=== PATIENT | male | born 1970 | race Caucasian/White ===

== ENCOUNTER 2023-11-03 10:22 | Outpatient (CLI) | payer OTHER, SELFPAY ==
[2023-11-03 16:44] LABS: Basophils # 0.1 K/mm3 (0-0.2); Basophils % 0.9 % (0.1-2.0); Eosinophils # 0.1 K/mm3 (0.0-0.4); Eosinophils % 1.6 % (0.1-12.0); Hemoglobin 15.4 g/dL (14.1-18.0); Lymphocytes # 2.1 K/mm3 (0.7-4.5); Lymphocytes % 31.6 % (10-50); Mean Corpuscular HGB Conc 33.4 g/dL (31.8-35.4); Mean Corpuscular Hemoglobin 29.8 pg (27.0-31.2); Mean Platelet Volume 9.8 fl (7.4-10.4); Monocytes # 0.5 K/mm3 (0.1-1.0); Monocytes % 7.3 % (1.7-9.3); Neutrophils # 3.8 K/mm3 (1.8-7.8); Neutrophils % 58.5 % (37.0-80.0); Platelet Count 254 K/mm3 (142-424); Red Blood Count 5.17 M/mm3 (4.60-6.20); Red Cell Distribution Width 13.7 % (11.5-17.5); White Blood Count 6.6 K/mm3 (4.8-10.8)
[2023-11-03 16:57] LABS: Alanine Aminotransferase 34 U/L (12-78); Albumin Level 4.5 g/dl (3.5-5.0); Albumin/Globulin Ratio 1.6 (1.1-1.8); Alkaline Phosphatase 84 U/L (38-126); Anion Gap 12.4 mEq/L (5-15); Aspartate Amino Transferase 36 U/L (17-59); Bilirubin,Total 0.5 mg/dl (0.2-1.3); Blood Urea Nitrogen 11 mg/dl (9-20); Calcium 9.6 mg/dl (8.4-10.2); Carbon Dioxide 24 mmol/L (22.0-30.0); Chloride 108 mmol/L (98-107); Chol/HDL Ratio 5.1 (1-3.5); Cholesterol 204 mg/dl (140-200); Estimated Glomerular Filt Rate 89 ml/min (>60); GFR (African American) 108 ML/MIN (>60); Globulin 2.9 g/dL (1.3-3.2); Glucose 94 mg/dl (74-100); HDL Cholesterol 40 mg/dl (40-60); Potassium 4.4 mmoL/L (3.5-5.1); Sodium 140 mmol/L (136-145); Total Protein,Serum 7.4 g/dl (6.3-8.2); Triglycerides 151 mg/dl (30-150); VLDL Cholesterol 30 mg/dL (0-40)
[2023-11-03 17:08] LABS: Direct LDL Cholesterol 132.19 mg/dL (100-129)
[2023-11-03 17:27] LABS: Thyroid Stimulating Hormone 1.61 uIU/mL (0.465-4.68)
== END 2023-11-03 23:59 | disposition home or self-care (01) ==
LOC: LAB.DROPOF 11-04 10:22
PROVIDERS: PCP Family Medicine; Visit Provider Family Medicine
DX: I10 Essential (primary) hypertension (principal)
CPT/HCPCS: 80050; 80053; 80061; 84443; 85025

== ENCOUNTER 2024-02-29 05:50 | Outpatient (CLI) | payer OTHER, SELFPAY ==
[2024-02-29 16:24] LABS: Basophils # 0.1 K/mm3 (0-0.2); Basophils % 1.6 % (0.1-2.0); Eosinophils # 0.2 K/mm3 (0.0-0.4); Eosinophils % 2.8 % (0.1-12.0); Hematocrit 46.1 % (42.0-52.0); Hemoglobin 15.7 g/dL (14.1-18.0); Lymphocytes # 2.5 K/mm3 (0.7-4.5); Lymphocytes % 42.7 % (10-50); Mean Corpuscular HGB Conc 34.2 g/dL (31.8-35.4); Mean Corpuscular Hemoglobin 29.7 pg (27.0-31.2); Mean Corpuscular Volume 86.8 fl (80-94); Mean Platelet Volume 9.3 fl (7.4-10.4); Monocytes # 0.5 K/mm3 (0.1-1.0); Monocytes % 8.5 % (1.7-9.3); Neutrophils # 2.6 K/mm3 (1.8-7.8); Neutrophils % 44.4 % (37.0-80.0); Platelet Count 231 K/mm3 (142-424); Red Blood Count 5.31 M/mm3 (4.60-6.20); Red Cell Distribution Width 13.6 % (11.5-17.5); White Blood Count 5.8 K/mm3 (4.8-10.8)
[2024-02-29 16:58] LABS: Alanine Aminotransferase 35 U/L (12-78); Albumin Level 4.4 g/dl (3.5-5.0); Albumin/Globulin Ratio 1.8 (1.1-1.8); Alkaline Phosphatase 81 U/L (38-126); Anion Gap 13.6 mEq/L (5-15); Aspartate Amino Transferase 34 U/L (17-59); Bilirubin,Total 0.5 mg/dl (0.2-1.3); Blood Urea Nitrogen 13 mg/dl (9-20); Calcium 9.5 mg/dl (8.4-10.2); Carbon Dioxide 28 mmol/L (22.0-30.0); Chloride 103 mmol/L (98-107); Chol/HDL Ratio 4.9 (1-3.5); Cholesterol 194 mg/dl (140-200); Estimated Glomerular Filt Rate 79 ml/min (>60); GFR (African American) 95 ML/MIN (>60); Globulin 2.5 g/dL (1.3-3.2); Glucose 59 mg/dl (74-100); HDL Cholesterol 40 mg/dl (40-60); Potassium 4.6 mmoL/L (3.5-5.1); Sodium 140 mmol/L (136-145); Total Protein,Serum 6.9 g/dl (6.3-8.2); Triglycerides 247 mg/dl (30-150); VLDL Cholesterol 49 mg/dL (0-40)
[2024-02-29 17:08] LABS: Direct LDL Cholesterol 134.32 mg/dL (100-129)
[2024-02-29 17:32] LABS: HIV (1&2) Antibody Rapid NONREACTIVE (NONREACTIVE)
[2024-03-01 09:22] LABS: HCV Ab Non Reactive (Non Reactive)
== END 2024-02-29 23:59 | disposition home or self-care (01) ==
LOC: LAB.DROPOF 03-01 07:39
PROVIDERS: PCP Family Medicine; Visit Provider Family Medicine
DX: I10 Essential (primary) hypertension (principal); Z11.59 Encounter for screening for other viral diseases; Z11.4 Encounter for screening for human immunodeficiency virus [HIV]
CPT/HCPCS: 80053; 80061; 85025; 86803; 87389

== ENCOUNTER 2024-04-21 10:33 | Day surgery (SDC) | payer OTHER, SELFPAY ==
[2024-04-14 13:48] VITALS: BMI 31.0
[2024-04-21 10:45] VITALS: BP 143/95; PULSE 79; RESP 16; TEMP 36.3; O2SAT 97
[2024-04-21] MEDS: LACTATED RINGERS 1000ML 1,000 ML 25 ML IV (10:51)
--- NOTE | 2024-04-21 10:54 | EXP.ANES.CKL ---
[facility] Disclaimer: The information contained in this section may have been updated after the patient was seen, as this information can be updated by other users. Medical History Depression GERD (gastroesophageal reflux disease) Psoriatic arthritis Surgical History H/O knee surgery History of cholecystectomy Family History Grandfather Cancer Coronary artery disease Diabetes Heart attack Hypertension Kidney disease Grandmother Cancer Diabetes Father Coronary artery disease Heart attack Hypertension Kidney disease Social History Smoking Status: Current every day smoker alcohol intake: never substance use type: denies use current occupational status: employed Travel in the last 8 weeks: None household members: spouse, children and other housing: house caffeine: Yes Have you lived/traveled outside [place] in past 30 days?: No Contact w/someone who lives/traveled outside [place] past 30 days?: No Exposure to someone with infectious disease in past 14 days?: No Do you have a fever (greater than 100.4 F or 38 C)?: No Have you tested positive for COVID-19: No Exposed to someone with COVID-19 in past 14 days?: No Do you have a sore throat?: No Do you have a cough?: No Do you have any weakness?: No Are you experiencing any nausea/vomitting?: No Do you have any diarrhea?: No Are you experiencing any unusual bleeding?: No Do you have any muscle aches/pain?: No Do you have any abdominal pain?: No Are you experiencing loss of taste or smell?: No [facility] Anesthesia Checklist Patient Identification Patient Identification: Arm Band Structural Data Admitted From: Home Planned Operative Procedure/s: Colonoscopy Consent for Planned Operative Procedure(s) Verified: Yes Verified Documents: Surgical Consent and History and Physical NPO Status Verified Time NPO: 00:00 Additional verifications Anesthesia Reactions: No Airway Assessment Mallampati Score:: Class II C-Spine Mobility Assessed: Yes TMJ Mobility Assessed: Yes Dentition: Dentures-good fit Neurological Assessment Level of Consciousness: Awake, Alert and Appropriate Anesthesia Plan Anesthesia Risk discussed: Yes Anesthesia Plan: Verified ASA Class: II Anesthesia Type: MAC
[2024-04-21 10:59] VITALS: O2SAT 99
--- NOTE | 2024-04-21 11:04 | P.HP_ITS ---
History of Present Illness *Admission Date: 04/21/24 *Reason for visit:: Surveillance-personal history of adenomatous polyps and family history *History of present illness: Mr. Camp is a 53-year-old gentleman who is here for surveillance colonoscopy. He does have a personal history of adenomatous polyps and his last colonoscopy 6 years ago showed 5 polyps. His mother had colon cancer at the age of 61. His paternal grandfather and maternal grandmother had colon cancer as well. The examination is deemed medically necessary for surveillance colonoscopy. The patient has been seen, interviewed and examined prior to the procedure by both myself and the anesthesia provider. [facility] Disclaimer: The information contained in this section may have been updated after the patient was seen, as this information can be updated by other users. Medical History Depression GERD (gastroesophageal reflux disease) Psoriatic arthritis Surgical History H/O knee surgery History of cholecystectomy Family History Grandfather Cancer Coronary artery disease Diabetes Heart attack Hypertension Kidney disease Grandmother Cancer Diabetes Father Coronary artery disease Heart attack Hypertension Kidney disease Social History Smoking Status: Current every day smoker alcohol intake: never substance use type: denies use current occupational status: employed Travel in the last 8 weeks: None household members: spouse, children and other housing: house caffeine: Yes Have you lived/traveled outside US in past 30 days?: No Contact w/someone who lives/traveled outside US past 30 days?: No Exposure to someone with infectious disease in past 14 days?: No Do you have a fever (greater than 100.4 F or 38 C)?: No Have you tested positive for COVID-19: No Exposed to someone with COVID-19 in past 14 days?: No Do you have a sore throat?: No Do you have a cough?: No Do you have any weakness?: No Are you experiencing any nausea/vomitting?: No Do you have any diarrhea?: No Are you experiencing any unusual bleeding?: No Do you have any muscle aches/pain?: No Do you have any abdominal pain?: No Are you experiencing loss of taste or smell?: No Other Medical History Have you received the Pneumonia Vaccine: No Review of Systems Review of Systems Review of systems (narrative): Negative *Cardiovascular Comments: Negative *Gastrointestinal Comments: Negative *Genitourinary Comments: Negative *Musculoskeletal Comments: Negative *Neurologic Comments: Negative Meds Home Medications and Allergies Home Medications ?Medication ?Instructions ?Recorded ?Confirmed ?Type fluticasone propionate 50 1 spray intranasal DAILY 05/19/22 04/21/24 History mcg/actuation nasal spray,suspension (Flonase Allergy Relief) omeprazole 20 mg capsule,delayed 20 mg PO DAILY 05/19/22 04/21/24 History release ustekinumab 90 mg/mL subcutaneous 90 mg SQ .Q12W 05/19/22 04/21/24 History syringe (Stelara) fluticasone propionate 110 1 inh inhalation BID #12 grams 05/15/23 04/21/24 Rx mcg/actuation HFA aerosol inhaler bupropion HCl 300 mg 24 hr tablet, 300 mg PO DAILY #90 tabs 08/09/23 04/21/24 Rx extended release pravastatin 20 mg tablet 40 mg (2 x 20 mg) PO DAILY 30 days 03/01/24 04/21/24 Rx #60 tabs amlodipine 5 mg tablet 5 mg PO DAILY #90 tabs 03/14/24 04/21/24 Rx sodium,potassium,mag sulfates 17.5 See Rx Instructions PO .COMPLEX 04/15/24 04/21/24 Rx gram-3.13 gram-1.6 gram oral soln #354 mL (Suprep Bowel Prep Kit) New Prescriptions to Start Prescriptions: Allergies Allergy/AdvReac Type Severity Reaction Status Date / Time No Known Allergies Allergy Verified 04/21/24 10:42 Exam Data for Last 24 hours Vital signs and Labs for Last 24 Hours: Temp Pulse Resp BP Pulse Ox O2 Del Method O2 Flow Rate 97.3 F L 79 16 143/95 H 97 Nasal Cannula 5 04/21/24 10:45 04/21/24 10:45 04/21/24 10:45 04/21/24 10:45 04/21/24 10:45 04/21/24 10:59 04/21/24 10:59 *Routine HEENT Exam Head: Present normocephalic Eye: Present EOMI and PERRL ENT: Present mucous membranes moist *Routine Neck Exam Neck: Present supple *Routine Respiratory Exam Respiratory: Present CTA bilaterally *Routine Cardiovascular Exam Cardiovascular: Present RRR *Routine Abdominal Exam Abdominal: Present soft and normoactive bowel sounds; Absent tenderness *Routine Rectal Exam Rectal:: deferred *Routine Genitalia Exam Genitalia:: deferred *Routine Extremities Exam Extremities: Absent cyanosis, clubbing or edema *Routine Skin Exam Skin: Present warm; Absent rash *Routine Neurological Exam Neurological: Present alert and oriented X3 Assessment and Plan *Assessment and plan (1) Personal history of adenomatous and serrated colon polyps: Status: Acute Category: Medical Code(s): Z86.0101 - Personal history of adenomatous and serrated colon polyps (2) Family history of colon cancer in mother: Status: Acute Category: Medical Code(s): Z80.0 - Family history of malignant neoplasm of digestive organs Plan A/P: 1. Personal history of adenomatous colon polyps and family history is the preprocedural diagnosis. The patient will be anesthetized/sedated using MAC sedation. The patient has been seen and examined. Cardiac and lung assessment prior to the examination is stable. Proceed with planned surveillance colonoscopy
--- NOTE | 2024-04-21 11:08 | HMH.PROCNOTE ---
[facility] Procedure Note Date: 04/21/24 Time: 11:26 Procedure Note:: Colonoscopy Procedure Report: Colonoscopy with cold snare polypectomy Endoscopist: Tay Contreras II, MD Referring physician: Tristen Mccormick MD Date of Procedure: April 21, 2024 Equipment: Olympus 190 variable stiffness pediatric colonoscope Sedation: MAC sedation Indication: Mr. Camp is a 53-year-old gentleman who is here for surveillance colonoscopy. His last colonoscopy 6 years ago (at [facility]) revealed 5 polyps that were removed. He does state that his mother had colon cancer at the age of 61. His paternal grandfather and maternal grandmother also had colon cancer. He reports no abdominal pain, weight loss, change in his bowel habits or rectal bleeding. Procedure: Prior to the procedure, a history and physical exam was performed, and patient's medications and allergies were reviewed. The risks, benefits and alternatives of the sedation and procedure were discussed with the patient. All questions were answered and informed consent was obtained. The patient was brought to the procedure room. Patient identification and proposed procedure were verified by the physician and the nurse. The patient was placed in a left lateral decubitus position and the scope was passed under direct vision. Throughout the procedure, the patient's blood pressure, pulse, and oxygen saturations were monitored continuously. The colonoscopy was accomplished without difficulty. The patient tolerated the procedure well. Findings: On digital rectal examination there was normal rectal tone. There were no external hemorrhoids. The colonoscope was introduced through the anal canal to the rectum and advanced to the cecum. The ileocecal valve and appendiceal orifice were identified. The scope was advanced a short distance into the ileum which appeared grossly normal. The scope was then withdrawn into the colon. The cecum, ascending and transverse colon and mucosa were grossly normal. There were mildly scattered diverticuli throughout the descending and sigmoid colon (LEFT colon). There was a single hyperplastic appearing polyp (4 mm) in the sigmoid colon removed via cold snare polypectomy. The rectum itself was normal. Upon retroflexion within the rectum there were grade 2 internal hemorrhoids. The preparation was excellent throughout with [place] Preparation Score of 9. The cecal time was 11 minutes. Impression: 1. Diminutive sigmoid polyp (4 mm)?hyperplastic appearing 2. Mild left-sided diverticulosis 3. Grade 2 internal hemorrhoids Plan: I will follow-up the polyp histology and recommend repeat surveillance colonoscopy in 5 years primarily based on his strong family history. I would encourage psyllium bulking fiber supplementation on a maintenance basis.
[2024-04-21 11:28] VITALS: BP 100/68; PULSE 77; RESP 18; TEMP 36.1; O2SAT 94
[2024-04-21 11:38] VITALS: BP 106/62; PULSE 72; RESP 18; O2SAT 95
[2024-04-21 11:48] VITALS: BP 111/64; PULSE 72; RESP 18; O2SAT 95
[2024-04-21 11:58] VITALS: BP 128/82; PULSE 67; RESP 18; O2SAT 95
== END 2024-04-21 12:28 | disposition home or self-care (01) ==
PROVIDERS: PCP Family Medicine; Visit Provider Internal Medicine Gastroenterology
PROC: (CPT 45385; principal; 2024-04-21 12:00)
DX: K63.5 Polyp of colon (principal); K57.30 Diverticulosis of large intestine without perforation or abscess without bleeding; K64.1 Second degree hemorrhoids; Z86.0101 Personal history of adenomatous and serrated colon polyps; Z80.0 Family history of malignant neoplasm of digestive organs
CPT/HCPCS: 45385; J7120

== ENCOUNTER 2024-09-30 15:33 | Outpatient (CLI) | payer OTHER, SELFPAY ==
--- OUTSIDE RECORDS SUMMARY | 2023-10-14 13:35 | XMS_ITS | Continuity of Care Document ---
Author Organization [facility]. If a dditional information is needed, contact Health Information Management at [phone] Address [address] [place] [address] Phone Care Team Providers Care Refrigeration Insulator Name Role Phone Unavailable Unavailable Unavailable Unavailable Unavailable Unavailable Unavailable Unavailable Unavailable Unavailable Unavailable Unavailable Unavailable Unavailable Unavailable Unavailable Unavailable Unavailable Unavailable Unavailable Unavailable Unavailable Unavailable Unavailable Unavailable Unavailable Unavailable Unavailable Unavailable Unavailable Unavailable Unavailable Unavailable Unavailable Unavailable Unavailable Unavailable Unavailable Unavailable Unavailable Unavailable Unavailable Unavailable Unavailable Unavailable Unavailable Unavailable Unavailable Unavailable Unavailable Unavailable Unavailable Unavailable Unavailable Note Valerie Gabriel MD--Ju Timeframe/days/weeks/months In 1-2 weeks Valerie Gabriel MD--Ju [facility] ([facility]ospital[facility] Discharge SummaryREPORT#:[id number] REPORT STATUS: SignedDATE:10/14/23 TIME: 1650PATIENT: ENMA DUBON UNIT #: [id number]#: [id number] [address] 53 SEX: M ATTEND: Luci Altman MDADM/RES AUTHOR: Harvey Padilla MDREP SRV REP SRV TM: 1650* ALL edits or amendments must be made on the electronic/computer document *General InformationDate of admission:Observation Start Date: 10/13/23Date of admission: 10/14/23Discharge date: 10/14/23Discharge diagnosis:1. Enecephalopathy, unpesified type2. Elevated Blood Pressure without diagnosis of HTN3. Psoriatic arthritis4. Major Depression Disorder5. Tobacco dependenceHospital course:53-year-old male with history of psoriatic arthritis, depression who presentedwith acute onset of vertigo upon waking this morning, however patient would thenbecame unresponsive. Apparently was felt that he may have drug overdose andNarcan was administered without any improvement. He was responsive to sternalrub but otherwise minimally responsive and maintaining his airway. He states hehas some recollection of EMS people arriving to work, but does not recall how hecame to be at the hospital. In the emergency department there was concern forcontinued severe encephalopathy. Patient was able to follow some basic commandsbut still appeared to be somnolent. As time passed patient is more alert andconversant, however now complains of lower extremity weakness and numbness. Nota candidate for thrombolytics as he reports that his symptoms were present uponwaking. Etiology of his encephalopathy not immediately clear, possiblymultifactorial in setting of dehydration, heat stroke, thc ingestion. MRI brainunremarkable for acute pathology. EEG was normal. leg weakness, resolved.Patient discharged home on new antihypertensive medications.Consultants: neurologyPt. condition on discharge: improved, stableAllergies:Allergies:No Known Allergies (Coded, 10/13/23)Free Text DxA P NotesFree text DxA P notes:10/13/2023 - AMS1. Altered mental status, R/O Sz vs CVA- CVA work up- Neuro checks Q1 x 12 hrs, then Q4 hrs for 24 hrs.- MRI brain w/o- 2D echo w/ bubble study- EEG pending- NPO until swallow study- PT/OT eval for rehab placement- permissive HTN per protocol- consulted Neuro, D/W Dr. Mcknight, input appreciated2. Psoriatic arthritis- continue home meds, pain control- Tylenol p.r.n., Mobic monitor Cr- home meds reconciled3. GERD- PPI GI Px., omeprazole 20 mg q.d.- home meds reconciled4. Morbid obesity , BMI 41.8- encourage diet, weight loss, exercise- lifestyle modifications- f/u PCP on D/C for wt. management- SCD's DVT/VTE Px.5. Tobacco dependence- encouraged cessation- nicotine patch p.r.n.- follow-up PCP for cessation management on D/C- > 3 mts spent on consultation/cessation6. Anxiety/Depression- hold welbutrin for Sz work up- restart on D/C when cleared by neuroDISPO: DC home.Med RecMed RecDischarge meds:Continue taking these medications:buPROPion HCL (Wellbutrin XL) 300 MG TAB.SR.24H 300 MILLIGRAM ORAL Comments: #30 - SIG Obtained From FirstOmeprazole (Omeprazole) 20 MG CAP.DR 20 MILLIGRAM ORAL WITH BREAKFASTLORATADINE (CLARITIN) 10 MG CAP 10 MILLIGRAM ORAL ONCE DAILYStart taking the following new medications:amLODIPine (NORVASC) 5 MG TAB 5 MILLIGRAM ORAL ONCE DAILY Days = 30 Qty = 30 Refills = 1ObjectiveVS/I OLast Documented: Result Date Time Pulse Ox 98 10/13 153 B/P 136/82 10/13 1531 B/P Mean 100.0 10/13 1531 O2 Delivery Room air 10/13 153 Temp 36.4 10/13 1531 Pulse 74 10/13 1531 Resp 18 10/13 [id number] hour I O ending at 0700: 10/13 0700 10/12 1900 Intake Total 240 200 Output Total 400 Balance 240 -200 Intake, Oral 240 200 Number Voids 2 Output, Urine 400 Patient 97.1 kg Weight Weight Bed scale Measurement MethodResultsFindings/Data:Laboratory Tests: 10/13 0243 Chemistry Sodium (136 - 145 mmol/L) 140 Potassium (3.4 - 5.1 mmol/L) 4.0 Chloride (98 - 107 mmol/L) 110 H Carbon Dioxide (20 - 31 mmol/L) 25 Anion Gap (5 - 15 MMOL/L) 5 BUN (9 - 23 mg/dL) 11 Creatinine (0.70 - 1.30 mg/dL) 1.10 Est GFR (CKD-EPI 2020) (>/= 60) > 60 BUN/Creatinine Ratio (12 - 20 RATIO) 10 L Glucose (74 - 106 mg/dL) 104 Calcium (8.7 - 10.4 mg/dL) 8.7 Calcium Adj for Albumin (8.8 - 10.5 mg/dL) 8.7 L Total Bilirubin (0.3 - 1.2 mg/dL) 0.3 AST (<34 Units/L) 27 ALT (10 - 49 Units/L) 29 Alkaline Phosphatase (46 - 116 Units/L) 87 Total Protein (5.7 - 8.2 g/dL) 6.3 Albumin (3.2 - 4.8 g/dL) 4.0 Globulin (2.2 - 4.0 G/DL) 2.3 Albumin/Globulin Ratio (0.7 - 2.0 RATIO) 1.7 Triglycerides (<150 mg/dL) 292 H Cholesterol (<200 mg/dL) 186 LDL Cholesterol (92 - 130 MG/DL) 92 VLDL Cholesterol (1 - 41 MG/DL) 58 H HDL Cholesterol (40 - 60 mg/dL) 36 L Cholesterol/HDL Ratio (3.9 - 5.2) 5.2 Hematology WBC (4.23 - 9.07 K/MM3) 6.98 RBC (4.63 - 6.08 M/MM3) 5.06 Hgb (13.7 - 17.5 GM/DL) 14.9 Hct (40.1 - 51.0 %PCV) 44.2 MCV (79.0 - 92.2 FL) 87.4 MCH (25.7 - 32.2 PG) 29.4 MCHC (32.3 - 36.5 GM/DL) 33.7 RDW (11.6 - 14.4 %) 13.2 Plt Count (163 - 337 K/MM3) 203 MPV (9.4 - 12.4 FL) 10.8 Immature Gran % (Auto) (0.0 - 0.9 %) 0.7 Neut % (Auto) (34.0 - 67.9 %) 51.6 Lymph % (Auto) (21.8 - 53.1 %) 36.2 [place] % (Auto) (5.3 - 12.2 %) 7.4 Eos % (Auto) (0.8 - 7.0 %) 3.2 Baso % (Auto) (0.2 - 1.2 %) 0.9 Neut # (Auto) (1.78 - 5.38 K/MM3) 3.60 Immature Gran # (Auto) (0.0 - 0.3) 0.05 Absolute Eos (auto) (0.04 - 0.54 K/MM3) 0.22 Absolute Basos (auto) (0.01 - 0.08) 0.06 Nucleated RBC % (0 - 0.2 %) 0.0 Lymphocytes # (1.32 - 3.57 K/MM3) 2.53 Monocytes # (0.30 - 0.82) 0.52 Nucleated RBCs (0 - 0 KMM3) 0.00Radiology data:Recent Impressions:MAGNETIC RESONANCE IMAGING - MRI BRAIN W WO CONT 10/13 1350 Report Impression - Status: SIGNED Entered: 10/14/2023 1500IMPRESSION:No acute intracranial findings are identified.Workstation Name: [id number] By: KARY MCKEE MDResults: labs reviewed, vital signs reviewed, vital signs stable, CT resultsreviewed, MRI results reviewed, x- ray personally reviewed, current med profilerev'dFree Text Obj NotesFree Text Obj Notes:Physical Exam:General appearance: Morbid obese, NAD, pleasant, conversational, mental statusnormal, no respiratory distressHead/Eyes: atraumatic, EOMI, PERRLAENT: moist mucosal membranes, normal dentitionNeck: full range of motion, non-tender, no JVDCardiovascular: normal heart sounds, regular rate rhythm, no murmurRespiratory: aerating well, clear to auscultation, symmetric expansion, nodistressGU/Abdomen: Obese/Rotund, non-tender, normal bowel sounds, softGenitourinary: no CVA tendernessExtremities: moves all, normal range of motion, no edemaMusculoskeletal: normal inspection, painless range of motionNeuro/DEPUTY PROSECUTING ATTORNEY: COA x 4, normal speech, EOMI, PERRL, CN II-XII intact, reflexesdeferred, no motor deficits, no sensory deficits, no cerebellar deficits,strenght 5/5 neuro intactSkin: dry, intactPsychiatry: normal affect, normal judgment/insight, normal moodDischarge InstructionsPCPPCP follow-up:PCP: Undefined ProviderDischarge to: Home/Self CareAdditional Discharge Routines: PCP Follow-UpDiet: Resume Home Diet/FeedsActivity: Resume Normal ActivityNotify PCP of these S/S: Chest Pain, Increased redness, Increased swelling,Increased tenderness/pain, Moderate/large bleeding, Numbness, Pus-like discharge, Red line from wound, Shortness of breath, Temp. 101 or greaterPrescriptions: e-prescribeRx drug database reviewed: yesDischarge management: less than 30 mins, face to face encounterTime spent: Time spent on patient care (minutes): 26 >50% spent on counseling/coordination of care: yesFollow-up AppointmentsPCP follow-up: PCP: Undefined Provider PCP follow up timeframe: In 1-2 weeksTreatments ProceduresImaging:Recent Impressions:COMPUTERIZED TOMOGRAPHY - CTA NECK W WO CONT 10/12 0705 Report Impression - Status: SIGNED Entered: 10/13/2023 0729IMPRESSION:No significant carotid artery stenosis.All CT scans at this facility use dose modulation, iterativereconstruction, and or weight based dosing when appropriate to reduceradiation dose to as low as reasonably achievable.Workstation Name: [id number] By: KARY MCKEE MDCOMPUTERIZED TOMOGRAPHY - CT HEAD/BRAIN W/O CONT 10/12 0705 Report Impression - Status: SIGNED Entered: 10/13/2023 0724IMPRESSION:No acute intracranial findings.All CT scans at this facility use dose modulation, iterativereconstruction, and or weight based dosing when appropriate to reduceradiation dose to as low as reasonably achievable.Workstation Name: [id number] By: KARY MCKEE MDCOMPUTERIZED TOMOGRAPHY - CTA HEAD W WO CONT 10/12 0705 Report Impression - Status: SIGNED Entered: 10/13/2023 0729IMPRESSION:No significant carotid artery stenosis.All CT scans at this facility use dose modulation, iterativereconstruction, and or weight based dosing when appropriate to reduceradiation dose to as low as reasonably achievable.Workstation Name: [id number] By: KAYR MCKEE MDRADIOLOGY - XR CHEST 1V 10/12 0710 Report Impression - Status: SIGNED Entered: 10/13/2023 0818IMPRESSION:Minimal hazy opacity in the left lung base.Nonspecific elevation of the right hemidiaphragm.Workstation Name: [id number] By: KARY MCKEE MDMAGNETIC RESONANCE IMAGING - MRI BRAIN W WO CONT 10/13 1350 Report Impression - Status: SIGNED Entered: 10/14/2023 1500IMPRESSION:No acute intracranial findings are identified.Workstation Name: [id number] By: KARY MCKEE MDQuality: DischargeCurrent MedicationsCurrent medication review:I attest that the foregoing medication list in the medical record is true,accurate, and complete to the best of my knowledge.BMI Screening > 25 or < 18.5BMI status/follow-up: abnl BMI, pt to F/U w/PCPTobacco Use/CounselingTobacco use/counseling: tobacco user, cessation child care counselor <3 minHTN Screening/Follow-upB/P assess/follow-up: normal B/P, no f/u req at 1234RPT #: [id number] OF REPORT Juan Luis Martins MD-14-Oct-2023 [facility] ([facility])Neurology Progress NoteREPORT#:[id number] REPORT STATUS: SignedDATE:10/14/23 TIME: 1512PATIENT: ENMA DUBON UNIT #: [id number]#: [id number] [address] 53 SEX: M ATTEND: Harvey Pdailla MDADM/RES AUTHOR: Fredrick Mcknight MDREP SRV REP SRV TM: 1512* ALL edits or amendments must be made on the electronic/computer document *SubjectiveChief complaint:No acute events overnight. Patient continues to show improvement. States hehas been up walking with no residual leg weakness or numbness to voidspontaneously. MRI completed with no evidence of stroke or other acuteintracranial pathology.HPI:53-year-old male with history of psoriatic arthritis, depression who presentedwith acute onset of vertigo upon waking this morning, however patient would thenbecame unresponsive. Apparently was felt that he may have drug overdose andNarcan was administered without any improvement. He was responsive to sternalrub but otherwise minimally responsive and maintaining his airway. He states hehas some recollection of EMS people arriving to work, but does not recall how hecame to be at the hospital. In the emergency department there was concern forcontinued severe encephalopathy. Patient was able to follow some basic commandsbut still appeared to be somnolent. As time passed patient is more alert andconversant, however now complains of lower extremity weakness and numbness.Not a candidate for thrombolytics as he reports that his symptoms were presentupon waking.Review of SystemsFree Text ROS NotesFree Text ROS Notes:14 point review of systems negative unless otherwise reported in the HPI.ObjectiveGeneralVS:Last Documented: Result Date Time Pulse Ox 98 10/13 1143 B/P 133/85 10/13 1143 B/P Mean 100.9 10/13 1143 O2 Delivery Room air 10/13 1143 Temp 36.6 10/13 1143 Pulse 65 10/13 1143 Resp 18 10/13 1143PATIENT WEIGHT:Weight (lb):Weight (oz):Weight (kg): 97.100MedicationsCurrent Home MedicationsOmeprazole 20 MG PO C BKLORATADINE (CLARITIN) 10 MG PO DAILYbuPROPion HCL (Wellbutrin XL) 300 MG POActive Meds + DC'd Last 24 HrsGadoterate Meglumine (Dotarem) 19 ML ONCALL PRN IV (CKD)Sodium Chloride (sodium chloride 0.9%) 10 ML ONCALL PRN IVLoratadine (Claritin) 10 MG QAM POMeloxicam (MOBIC) 15 MG QAM POPantoprazole Sodium Sesquihydrate (Protonix) 40 MG QAM POLoratadine (Claritin) 10 MG DAILY PO (DC)Nicotine (NICOTINE 21 MG PATCH) 21 MG BEDTIME TRANSDERM (CKD)Acetaminophen (TylenoL) 650 MG Q4H PRN PRN POCalcium Carbonate (Tums) 1,000 MG Q6H PRN PRN POLorazepam (Ativan) 2 MG Q4H PRN PRN IVOndansetron HCl (Zofran) 4 MG Q4H PRN PRN IVSodium Chloride (sodium chloride 0.9%) 0 PRN PRN IVPhysical ExamHead/Eyes: atraumatic, normocephalicENT: moist mucosal membranesNeck: full range of motionCardiovascular: regular rate and rhythmRespiratory: aerating well, no distressAbdomen: soft, no distentionExtremities: moves all, no edemaNeuro/DEPUTY PROSECUTING ATTORNEY: alert, oriented X 4, normal speech, EOMI, PERRL, CN II-XII intact,reflexes equal bilat, normal reflexes, no motor deficits, no sensory deficits,no cerebellar deficitsDiagnosis, Assessment PlanFree Text A P:1. Encephalopathy, resolving- etiology not immediately clear, possibly multifactorial in setting ofdehydration, heat stroke, thc ingestion- MRI brain unremarkable for acute pathology- EEG was normal- afebrile, laboratories are fairly unimpressive. CK 299- check TSH, B12, RPR2. leg weakness, resolvedConsultants: neurologyQuality: Gen Med Crit CareVTE ProphylaxisVTE prophylaxis initiated: yes at 1515RPT #: [id number] OF REPORT Valerie Gabriel MD-26-Ju [facility])Hospitalist Progress NoteREPORT#:[id number] REPORT STATUS: SignedDATE:10/14/23 TIME: 1449PATIENT: ENMA DUBON UNIT #: [id number]#: [id number] [address]: 53 SEX: M ATTEND: Luci Altman MDADM/RES AUTHOR: Harvey Padilla MDREP SRV REP SRV TM: 1449* ALL edits or amendments must be made on the electronic/computer document *SubjectiveChief complaint:AMSHPI:53 y/o male comes to the ER via helicopter when he was noted to be lessresponsive, sitting around [place] where he has been both camping andworking. Patient was reported to last be known well at 5:00 a.m.. There isno additional history available. Patient was given Narcan without anysignificant change. It was noted that patient does respond to deep sternal rub,but otherwise is minimally responsive but maintaining his airway. On ER arrivalhe only responded to deep sternal rub and does not speak. Upon admissionpatient was alert oriented x4. He does not recall any events. Any history ofseizures. No prior history or episodes like this, co-worker at bedside stateshe is essentially back to baseline. He admits use of THC gummies for chronicpsoriatic arthritic pain but denies any changes to dose, and Wellbutrin fordepression/anxiety. He denies any chest pain, shortness breath, nausea,vomiting diarrhea, no recent illness, fevers, chills or any other complaints atthis point. He admits he was out in the heat all day yesterday working buthydrated well.Comments:No new events. Remain stable. No new focal deficits.Review of SystemsAll systems rev neg: except as markedObjectiveGeneralVS/I O:Vital Signs: Date Time Temp Pulse Resp B/P B/P Pulse O2 O2 Flow FiO2 Mean Ox Delivery Rate 10/13 1143 36.6 65 18 133/85 100.9 98 Room air 10/13 0739 36.5 60 18 126/81 95.9 95 Room air 10/13 0404 36.4 55 14 132/80 97.6 97 Room air 10/12 2355 36.9 70 14 127/75 92.3 97 Room air 10/12 2007 36.8 75 15 138/80 99.1 97 10/12 1618 36.8 66 19 162/92 115.4 98 Room air24 hour I O ending at 0700: 10/13 0700 10/12 1900 Intake Total 240 200 Output Total 400 Balance 240 -200 Intake, Oral 240 200 Number Voids 2 Output, Urine 400 Patient 97.1 kg Weight Weight Bed scale Measurement MethodPATIENT WEIGHT:Weight (lb):Weight (oz):Weight (kg): 97.100Medications:Active Meds + DC'd Last 24 HrsGadoterate Meglumine (Dotarem) 19 ML ONCALL PRN IV (CKD)Sodium Chloride (sodium chloride 0.9%) 10 ML ONCALL PRN IVLoratadine (Claritin) 10 MG QAM POMeloxicam (MOBIC) 15 MG QAM POPantoprazole Sodium Sesquihydrate (Protonix) 40 MG QAM POLoratadine (Claritin) 10 MG DAILY PO (DC)Nicotine (NICOTINE 21 MG PATCH) 21 MG BEDTIME TRANSDERM (CKD)Acetaminophen (TylenoL) 650 MG Q4H PRN PRN POCalcium Carbonate (Tums) 1,000 MG Q6H PRN PRN POLorazepam (Ativan) 2 MG Q4H PRN PRN IVOndansetron HCl (Zofran) 4 MG Q4H PRN PRN IVSodium Chloride (sodium chloride 0.9%) 0 PRN PRN IVDietitian nutrition assessmentThe data set between the solid lines has been imported from the dietitian'dyllan. __BMI Calculated: 41.8Nutrition related diagnosis:Nutrition diagnosis details:Nutrition problem:Nutrition etiology:Nutrition signs and symptoms:Nutrition prescription:Dietitian name:Assessment completed: Resul tsFin dings/Data:Laboratory Tests 10/13 0243 Chemistry Sodium (136 - 145 mmol/L) 140 Potassium (3.4 - 5.1 mmol/L) 4.0 Chloride (98 - 107 mmol/L) 110 H Carbon Dioxide (20 - 31 mmol/L) 25 Anion Gap (5 - 15 MMOL/L) 5 BUN (9 - 23 mg/dL) 11 Creatinine (0.70 - 1.30 mg/dL) 1.10 Est GFR (CKD-EPI 2020) (>/= 60) > 60 BUN/Creatinine Ratio (12 - 20 RATIO) 10 L Glucose (74 - 106 mg/dL) 104 Calcium (8.7 - 10.4 mg/dL) 8.7 Calcium Adj for Albumin (8.8 - 10.5 mg/dL) 8.7 L Total Bilirubin (0.3 - 1.2 mg/dL) 0.3 AST (<34 Units/L) 27 ALT (10 - 49 Units/L) 29 Alkaline Phosphatase (46 - 116 Units/L) 87 Total Protein (5.7 - 8.2 g/dL) 6.3 Albumin (3.2 - 4.8 g/dL) 4.0 Globulin (2.2 - 4.0 G/DL) 2.3 Albumin/Globulin Ratio (0.7 - 2.0 RATIO) 1.7 Triglycerides (<150 mg/dL) 292 H Cholesterol (<200 mg/dL) 186 LDL Cholesterol (92 - 130 MG/DL) 92 VLDL Cholesterol (1 - 41 MG/DL) 58 H HDL Cholesterol (40 - 60 mg/dL) 36 L Cholesterol/HDL Ratio (3.9 - 5.2) 5.2Laboratory Tests 10/13 0243 Hematology WBC (4.23 - 9.07 K/MM3) 6.98 RBC (4.63 - 6.08 M/MM3) 5.06 Hgb (13.7 - 17.5 GM/DL) 14.9 Hct (40.1 - 51.0 %PCV) 44.2 MCV (79.0 - 92.2 FL) 87.4 MCH (25.7 - 32.2 PG) 29.4 MCHC (32.3 - 36.5 GM/DL) 33.7 RDW (11.6 - 14.4 %) 13.2 Plt Count (163 - 337 K/MM3) 203 MPV (9.4 - 12.4 FL) 10.8 Immature Gran % (Auto) (0.0 - 0.9 %) 0.7 Neut % (Auto) (34.0 - 67.9 %) 51.6 Lymph % (Auto) (21.8 - 53.1 %) 36.2 [place] % (Auto) (5.3 - 12.2 %) 7.4 Eos % (Auto) (0.8 - 7.0 %) 3.2 Baso % (Auto) (0.2 - 1.2 %) 0.9 Neut # (Auto) (1.78 - 5.38 K/MM3) 3.60 Immature Gran # (Auto) (0.0 - 0.3) 0.05 Absolute Eos (auto) (0.04 - 0.54 K/MM3) 0.22 Absolute Basos (auto) (0.01 - 0.08) 0.06 Nucleated RBC % (0 - 0.2 %) 0.0 Lymphocytes # (1.32 - 3.57 K/MM3) 2.53 Monocytes # (0.30 - 0.82) 0.52 Nucleated RBCs (0 - 0 KMM3) 0.00Results: labs reviewed, vital signs reviewed, vital signs stable, CT resultsreviewed, current med profile rev'dFree Text Obj NotesFree Text Obj Notes:Physical Exam:General appearance: Morbid obese, NAD, pleasant, conversational, mental statusnormal, no respiratory distressHead/Eyes: atraumatic, EOMI, PERRLAENT: moist mucosal membranes, normal dentitionNeck: full range of motion, non-tender, no JVDCardiovascular: normal heart sounds, regular rate rhythm, no murmurRespiratory: aerating well, clear to auscultation, symmetric expansion, nodistressGU/Abdomen: Obese/Rotund, non-tender, normal bowel sounds, softGenitourinary: no CVA tendernessExtremities: moves all, normal range of motion, no edemaMusculoskeletal: normal inspection, painless range of motionNeuro/DEPUTY PROSECUTING ATTORNEY: COA x 4, normal speech, EOMI, PERRL, CN II-XII intact, reflexesdeferred, no motor deficits, no sensory deficits, no cerebellar deficits,strenght 5/5 neuro intactSkin: dry, intactPsychiatry: normal affect, normal judgment/insight, normal moodTreatment ProphylaxisTreatment ProphylaxisLines: peripheralDiagnosis, Assessment PlanConsultants: neurologyCode status: full codePlan discussed with: patient, consultants, nurseFree Text DxA P NotesFree text DxA P notes:10/13/2023 - AMS1. Altered mental status, R/O Sz vs CVA- CVA work up- Neuro checks Q1 x 12 hrs, then Q4 hrs for 24 hrs.- MRI brain w/o- 2D echo w/ bubble study- EEG pending- NPO until swallow study- PT/OT eval for rehab placement- permissive HTN per protocol- consulted Neuro, D/W Dr. Mcknight, input appreciated2. Psoriatic arthritis- continue home meds, pain control- Tylenol p.r.n., Mobic monitor Cr- home meds reconciled3. GERD- PPI GI Px., omeprazole 20 mg q.d.- home meds reconciled4. Morbid obesity , BMI 41.8- encourage diet, weight loss, exercise- lifestyle modifications- f/u PCP on D/C for wt. management- SCD's DVT/VTE Px.5. Tobacco dependence- encouraged cessation- nicotine patch p.r.n.- follow-up PCP for cessation management on D/C- > 3 mts spent on consultation/cessation6. Anxiety/Depression- hold welbutrin for Sz work up- restart on D/C when cleared by neuroDISPO: Continue present management. Continue to follow Brain MRI andEchocardiogram.QualityMedicationsCurrent medication review:I attest that the foregoing medication list in the medical record is true,accurate, and complete to the best of my knowledge.VTE ProphylaxisVTE prophylaxis initiated: yesBMI Screening > 25 or < 18.5BMI status/follow-up: abnl BMI, pt to F/U w/PCPTobacco Use/CounselingTobacco use/counseling: tobacco user, cessation child care counselor <3 minHTN Screening/Follow-upB/P assess/follow-up: normal B/P, no f/u req at 1604RPT #: [id number] OF REPORT Juan Luis Martins MD-25-Sep-2023 [facility])Neurology Consultation NoteREPORT#:[id number] REPORT STATUS: SignedDATE:10/13/23 TIME: 1535PATIENT: ENMA DUBON UNIT #: [id number]#: [id number] [address] 53 SEX: M ATTEND: Luci Altman MDADM/RES AUTHOR: Fredrick Mcknight MDREP SRV REP SRV TM: 1535* ALL edits or amendments must be made on the electronic/computer document *History of Present IllnessHPIHPI:53-year-old male with history of psoriatic arthritis, depression who presentedwith acute onset of vertigo upon waking this morning, however patient would thenbecame unresponsive. Apparently was felt that he may have drug overdose andNarcan was administered without any improvement. He was responsive to sternalrub but otherwise minimally responsive and maintaining his airway. He states hehas some recollection of EMS people arriving to work, but does not recall how hecame to be at the hospital. In the emergency department there was concern forcontinued severe encephalopathy. Patient was able to follow some basic commandsbut still appeared to be somnolent. As time passed patient is more alert andconversant, however now complains of lower extremity weakness and numbness.Not a candidate for thrombolytics as he reports that his symptoms were presentupon waking.History - Adult longitudinalPast medical history:Reports: Arthritis (Psoriatic), Depression/mood disorder, GERD/gastritis.Past surgical history:Reports: Cholecystectomy.Alcohol use: Denies EtOH useDrug use: Marijuana (THC gummies )Smoking status for patients 13 years old or older: Current every day smokerDate last smoked: 10/12/23Packs per day: 1Years smoked: 25Pack years: 25Allergies:Coded Allergies:No Known Allergies (10/13/23)Ambulatory status: IndependentObjectiveGeneralVS:Last Documented: Result Date Time Pulse Ox 98 10/12 1328 B/P 130/87 10/12 1328 B/P Mean 101.2 10/12 1328 O2 Delivery Room air 10/12 1328 Temp 36.7 10/12 1328 Pulse 65 10/12 1328 Resp 18 10/12 1328PATIENT WEIGHT:Weight (lb):Weight (oz):Weight (kg): 97.100MedicationsCurrent Home MedicationsbuPROPion HCL (Wellbutrin XL) 300 MG PO BEDTIMEMELOXICAM (MOBIC) 15 MG PO DAILYOmeprazole 20 MG PO C BKLORATADINE (CLARITIN) 10 MG PO DAILYActive Meds + DC'd Last 24 HrsMeloxicam (MOBIC) 15 MG QAM PO (CKD)Pantoprazole Sodium Sesquihydrate (Protonix) 40 MG QAM POLoratadine (Claritin) 10 MG DAILY PO (CKD)Nicotine (NICOTINE 21 MG PATCH) 21 MG BEDTIME TRANSDERM (CKD)Acetaminophen (TylenoL) 650 MG Q4H PRN PRN POCalcium Carbonate (Tums) 1,000 MG Q6H PRN PRN POLorazepam (Ativan) 2 MG Q4H PRN PRN IVOndansetron HCl (Zofran) 4 MG Q4H PRN PRN IVSodium Chloride (sodium chloride 0.9%) 0 PRN PRN IVSodium Chloride (SODIUM CHLORIDE 0.9%) 1,000 ML X1ED ONE IV (DC)Physical ExamGeneral appearance: alert, awake, oriented, no acute distress, pleasant,conversational, mental status normal, no respiratory distressHead/Eyes: atraumatic, normocephalicENT: moist mucosal membranesNeck: full range of motionCardiovascular: regular rate and rhythmRespiratory: aerating well, no distressAbdomen: soft, no distentionExtremities: moves all, no edemaNeuro/DEPUTY PROSECUTING ATTORNEY: alert, oriented X 4, normal speech, EOMI, PERRL, CN II-XII intact,reflexes equal bilat, normal reflexes, no motor deficits, Patchy sensory losswith no clear dermatomal or peripheral nerve distribution. Sensation intactvibration bilaterally at the patella and great toesDiagnosis, Assessment PlanConsultants: neurologyFree Text DxA P NotesFree text DxA P notes:1. Encephalopathy, resolving- etiology not immediately clear, possibly toxic drum from ingestion of THC,problems multifactorial in setting of dehydration, heat stroke- MRI brain pending- may consider EEG- afebrile, laboratories are fairly unimpressive. CK 299- check TSH, B12, RPR yet2. leg weakness- patient complains legs feel heavy and tingly. There are scattered sensoryfindings on exam that are not convincing for dermatomal or peripheral nervedistribution. Weakness seems to be effort dependent.Quality: Gen Med Crit CareVTE ProphylaxisVTE prophylaxis initiated: yes at 1543RPT #: [id number] OF REPORT Idania BRYSON-- Sep-2023 [facility] ([facility])Hospitalist History PhysicalREPORT#:[id number] REPORT STATUS: SignedDATE:10/13/23 TIME: 1210PATIENT: ENMA DUBON UNIT #: [id number]#: [id number] ROOM/BED: [facility]- AAGE: 53 SEX: M ATTEND: Luci Altman/RES AUTHOR: Miryam Olson SRV [facility] SRV TM: 1210* ALL edits or amendments must be made on the electronic/computer document *MIRYAM NOVAK 10/13/23 1210:History of Present IllnessHPIChief complaint:AMSPCP:PCP: DANIEL, TNHPI:53 y/o male comes to the ER via helicopter when he was noted to be lessresponsive, sitting around a camp ground where he has been both camping andworking. Patient was reported to last be known well at 5:00 a.m.. There isno additional history available. Patient was given Narcan without anysignificant change. It was noted that patient does respond to deep sternal rub,but otherwise is minimally responsive but maintaining his airway. On ER arrivalhe only responded to deep sternal rub and does not speak. Upon admissionpatient was alert oriented x4. He does not recall any events. Any history ofseizures. No prior history or episodes like this, co-worker at bedside stateshe is essentially back to baseline. He admits use of THC gummies for chronicpsoriatic arthritic pain but denies any changes to dose, and Wellbutrin fordepression/anxiety. He denies any chest pain, shortness breath, nausea,vomiting diarrhea, no recent illness, fevers, chills or any other complaints atthis point. He admits he was out in the heat all day yesterday working buthydrated well.HistoryPast medical history:Reports: Arthritis (Psoriatic), Depression/mood disorder, GERD/gastritis.Past surgical history:Reports: Cholecystectomy.Alcohol use: Denies EtOH useDrug use: Marijuana (THC gummies )Smoking status for patients 13 years old or older: Current every day smokerMedication/Allergy-Vaccine HxMedications:Home Medications:Medication Dose/Rte/Freq Days Qty Entered Last Max Daily Dose Reviewed buPROPion HCL 300 MG PO BEDTIME 10/13/23 10/13/23 (Wellbutrin XL) 08 1339Strength: 300 MG TAB.SR.24H MELOXICAM (MOBIC) 15 MG PO DAILY 10/13/23 10/13/23Strength: 15 MG TAB 0813 1339 Omeprazole 20 MG PO C BK 10/13/23 10/13/23Strength: 20 MG CAP. 0814 1339 LORATADINE (CLARITIN) 10 MG PO DAILY 10/13/23 10/13/23Strength: 10 MG CAP 0814 1339Current Hospital Medications:Autonomic Drugs Sig/Rodríguez Start time Last Medication Dose Route Stop Time Status Admin Nicotine 21 MG BEDTIME 10/12 2100 CKD (NICOTINE 21 MG TRANSDERM PATCH)Central Nervous System Agents Sig/Rodríguez Start time Last Medication Dose Route Stop Time Status Admin Acetaminophen 650 MG Q4H PRN PRN 10/12 1215 AC (TylenoL) PO Lorazepam 2 MG Q4H PRN PRN 10/12 1215 AC (Ativan) IV 10/22 1214Electrolytic, Caloric, And Noa Sig/Rodríguez Start time Last Medication Dose Route Stop Time Status Admin Calcium Carbonate 1,000 MG Q6H PRN PRN 10/12 1215 AC (Tums) PO Sodium Chloride 0 PRN PRN 10/12 1215 AC (sodium chloride IV 0.9%) Sodium Chloride 1,000 ML X1ED ONE 10/12 1000 DC 10/12 (SODIUM CHLORIDE IV 10/12 1100 1016 0.9%)Gastrointestinal Drugs Sig/Rodríguez Start time Last Medication Dose Route Stop Time Status Admin Ondansetron HCl 4 MG Q4H PRN PRN 10/12 1215 AC (Zofran) IVAllergies:Coded Allergies:No Known Allergies (10/13/23)Ambulatory status: IndependentReview of SystemsConstitutional:Denies: chills, fever.Respiratory:Denies: HAAS (dyspnea on exertion), SOB.Cardiovascular:Denies: chest pain, edema.Musculoskeletal:arthritis ( psoriatic).Neuro:change in LOC, unable to speak, weakness.Psych:anxiety, change in mental status, depression.All systems rev neg: except as markedObjectiveGeneralVS/I O:Vital Signs: Date Time Temp Pulse Resp B/P B/P Pulse O2 O2 Flow FiO2 Mean Ox Delivery Rate 10/12 1328 36.7 65 18 130/87 101.2 98 Room air 10/12 1230 75 122/71 92 95 10/12 1215 74 121/69 90 97 10/12 1205 96 10/12 1200 66 116/66 87 06/25 1145 71 120/68 90 96 06/25 1130 69 107/65 81 92 06/25 1115 67 111/66 83 93 06/25 1100 63 18 107/63 80 95 06/25 1000 71 18 116/65 84 95 06/25 0950 96 06/ 0945 75 136/77 99 06/25 0940 18 06/ 0930 80 20 117/66 86 94 06/25 0920 96 06/ 0915 80 118/68 88 06/25 0910 18 06/25 0900 71 20 117/67 87 94 06/25 0855 69 17 06/25 0850 94 06/25 0845 71 19 114/66 84 06/25 0830 116/68 87 94 06/25 0815 77 20 114/68 84 06/25 0805 95 06/ 0800 67 102/58 76 06/ 0755 99 06/25 0750 93 06/ 0745 118/63 84 06/25 0740 71 19 06/ 0730 72 20 126/70 91 06/ 0725 77 20 06/25 0721 128/65 91 06/25 0720 94 06/25 0705 36.2 78 14 137/86 103 97 Room airPATIENT WEIGHT:Weight (lb):Weight (oz):Weight (kg): 97.100Medications:Active Meds + DC'd Last 24 HrsNicotine (NICOTINE 21 MG PATCH) 21 MG BEDTIME TRANSDERM (CKD)Acetaminophen (TylenoL) 650 MG Q4H PRN PRN POCalcium Carbonate (Tums) 1,000 MG Q6H PRN PRN POLorazepam (Ativan) 2 MG Q4H PRN PRN IVOndansetron HCl (Zofran) 4 MG Q4H PRN PRN IVSodium Chloride (sodium chloride 0.9%) 0 PRN PRN IVSodium Chloride (SODIUM CHLORIDE 0.9%) 1,000 ML X1ED ONE IV (DC)ResultsFindings/Data:Laboratory Tests 10/12/ 0740 0731 0721 Blood Gas Specimen Type Arterial Arterial Puncture Site Right Radial pH (7.35 - 7.45) 7.40 pCO2 (35 - 45 MMHG) 40 pO2 (80 - 100 MMHG) 68 L Bicarbonate Actual (22 - 26 MEQ/L) 24 O2 Saturation (94 - 98 %) 94 ABG pH (Temp Correct) (7.35 - 7.45) 7.40 7.38 ABG pCO2 (Temp Corrct (35 - 45 mmHg) 40 45 ABG pO2 (Temp Correct (80 - 100 mmHg) 61.0 L < 38.3 CL ABG PO2/FiO2 Ratio (>200 MMHG) 323.8 ABG HCO3 (22 - 26 mmol/L) 24.7 26.4 H ABG O2 Sat (Calculated) (94 - 98 %) 91.0 L ABG Base Excess (-2.0 - 2.0 MEQ/L) -0.3 -0.1 0.8 Carboxyhemoglobin (1.5 - 5 % THGB) 2.9 Methemoglobin (0.0 - 1.5 %) 0.3 Total Hemoglobin (12.0 - 18.0 G/L) 15.6 O2 Delivery Device Room Air FiO2 (21 - 100 %) 21Laboratory Tests 10/12 10/12 10/12 10/12 0940 0940 0707 0659 Chemistry Sodium (136 - 145 mmol/L) 139 Potassium (3.4 - 5.1 mmol/L) 4.0 Chloride (98 - 107 mmol/L) 111 H Carbon Dioxide (20 - 31 mmol/L) 26 Anion Gap (5 - 15 MMOL/L) 2 L BUN (9 - 23 mg/dL) 13 Creatinine (0.70 - 1.30 mg/dL) 1.26 Est GFR (CKD-EPI 2020) (>/= 60) > 60 BUN/Creatinine Ratio (12 - 20 RATIO) 10 L Glucose (74 - 106 mg/dL) 119 H POC Glucose (70 - 110 MG/DL) 136 H Calcium (8.7 - 10.4 mg/dL) 9.6 Calcium Adj for Albumin (8.8 - 10.5 mg/dL) 9.3 Total Bilirubin (0.3 - 1.2 mg/dL) 0.4 AST (<34 Units/L) 35 H ALT (10 - 49 Units/L) 31 Alkaline Phosphatase (46 - 116 Units/L) 93 Ammonia (11.2 - 31.7 umol/L) 13 Creatine Kinase (46 - 171 Units/L) 299 H Troponin I High Sens (0 - 53 ng/L) < 3 Total Protein (5.7 - 8.2 g/dL) 6.8 Albumin (3.2 - 4.8 g/dL) 4.4 Globulin (2.2 - 4.0 G/DL) 2.4 Albumin/Globulin Ratio (0.7 - 2.0 RATIO) 1.8Laboratory Tests 10/12 0707 Coagulation PT (10.0 - 12.8 Seconds) 10.9 INR (0.8 - 1.1) 1.0 APTT (25 - 38 Seconds) < 22 LLaboratory Tests 10/12 07 Hematology WBC (4.23 - 9.07 K/MM3) 7.33 RBC (4.63 - 6.08 M/MM3) 5.12 Hgb (13.7 - 17.5 GM/DL) 15.1 Hct (40.1 - 51.0 %PCV) 44.7 MCV (79.0 - 92.2 FL) 87.3 MCH (25.7 - 32.2 PG) 29.5 MCHC (32.3 - 36.5 GM/DL) 33.8 RDW (11.6 - 14.4 %) 13.1 Plt Count (163 - 337 K/MM3) 197 MPV (9.4 - 12.4 FL) 10.6 Immature Gran % (Auto) (0.0 - 0.9 %) 0.4 Neut % (Auto) (34.0 - 67.9 %) 64.5 Lymph % (Auto) (21.8 - 53.1 %) 25.2 [place] % (Auto) (5.3 - 12.2 %) 7.2 Eos % (Auto) (0.8 - 7.0 %) 1.9 Baso % (Auto) (0.2 - 1.2 %) 0.8 Neut # (Auto) (1.78 - 5.38 K/MM3) 4.72 Immature Gran # (Auto) (0.0 - 0.3) 0.03 Absolute Eos (auto) (0.04 - 0.54 K/MM3) 0.14 Absolute Basos (auto) (0.01 - 0.08) 0.06 Nucleated RBC % (0 - 0.2 %) 0.0 Lymphocytes # (1.32 - 3.57 K/MM3) 1.85 Monocytes # (0.30 - 0.82) 0.53 Nucleated RBCs (0 - 0 KMM3) 0.00Laboratory Tests 10/12 10/12 0710 0707 Toxicology Salicylates (<29.0 mg/dL) <3.0 Urine Opiates Screen (300 ng/mL) NEGATIVE Acetaminophen (10.0 - 20.0 ug/mL) < 2.0 L Ur Barbiturates Screen (200 ng/mL) NEGATIVE Ur Phencyclidine Scrn (25 ng/mL) NEGATIVE Ur Amphetamines Screen (1000 ng/mL) NEGATIVE U Benzodiazepines Scrn (200 ng/mL) NEGATIVE Urine Cocaine Screen (300 ng/mL) NEGATIVE U Cannabinoids Screen (50 ng/mL) POSITIVE H Plasma/Serum Alcohol (0 - 10 mg/dL) < 3Laboratory Tests 10/12 0707 Urines Urine Color (Yellow) Light Yellow Urine Appearance (Clear) Clear Urine pH (5.0 - 8.0 mg/dL) 6.0 Ur Specific [place] (1.003 - 1.030) >1.030 Urine Protein (Negative mg/dL) 10 (Trace) Urine Ketones (Negative mg/dL) Negative Urine Blood (Negative mg/dL) 0.03 (Trace) H Urine Nitrite (Negative) Negative Urine Bilirubin (Negative mg/dL) Negative Urine Urobilinogen (Normal mg/dL) Normal Ur Leukocyte Esterase (Negative MANFRED/uL) Negative Urine RBC (0 - 5 /HPF) 6-9 H Urine WBC (0 - 5 /HPF) 0-1 Ur Epithelial Cells (0 - 2 /HPF) 0-1 Urine Bacteria (None Seen /HPF) None Seen Urine Mucus (3+ /LPF) Trace Urine Glucose (Negative mg/dL) NegativeRadiology data:Recent Impressions:COMPUTERIZED TOMOGRAPHY - CTA NECK W WO CONT 10/12 07 Report Impression - Status: SIGNED Entered: 10/13/2023 0729IMPRESSION:No significant carotid artery stenosis.All CT scans at this facility use dose modulation, iterativereconstruction, and or weight based dosing when appropriate to reduceradiation dose to as low as reasonably achievable.Workstation Name: [id number] By: KARY MCKEE MDCOMPUTERIZED TOMOGRAPHY - CT HEAD/BRAIN W/O CONT 10/12 704 Report Impression - Status: SIGNED Entered: 10/13/2023 0724IMPRESSION:No acute intracranial findings.All CT scans at this facility use dose modulation, iterativereconstruction, and or weight based dosing when appropriate to reduceradiation dose to as low as reasonably achievable.Workstation Name: [id number] By: KARY MCKEE MDCOMPUTERIZED TOMOGRAPHY - CTA HEAD W WO CONT 10/12 0705 Report Impression - Status: SIGNED Entered: 10/13/2023 0729IMPRESSION:No significant carotid artery stenosis.All CT scans at this facility use dose modulation, iterativereconstruction, and or weight based dosing when appropriate to reduceradiation dose to as low as reasonably achievable.Workstation Name: [id number] By: KARY MCKEE MDRADIOLOGY - XR CHEST 1V 10/12 0710 Report Impression - Status: SIGNED Entered: 10/13/2023 0818IMPRESSION:Minimal hazy opacity in the left lung base.Nonspecific elevation of the right hemidiaphragm.Workstation Name: [id number] By: KARY MCKEE MDResults: labs reviewed, vital signs reviewed, vital signs stable, x-raypersonally reviewedFree Text Obj NotesFree Text Obj Notes:Physical Exam:General appearance: Morbid obese, NAD, pleasant, conversational, mental statusnormal, no respiratory distressHead/Eyes: atraumatic, EOMI, PERRLAENT: moist mucosal membranes, normal dentitionNeck: full range of motion, non-tender, no JVDCardiovascular: normal heart sounds, regular rate rhythm, no murmurRespiratory: aerating well, clear to auscultation, symmetric expansion, nodistressGU/Abdomen: Obese/Rotund, non-tender, normal bowel sounds, softGenitourinary: no CVA tendernessExtremities: moves all, normal range of motion, no edemaMusculoskeletal: normal inspection, painless range of motionNeuro/DEPUTY PROSECUTING ATTORNEY: COA x 4, normal speech, EOMI, PERRL, CN II-XII intact, reflexesdeferred, no motor deficits, no sensory deficits, no cerebellar deficits,strenght 5/5 neuro intactSkin: dry, intactPsychiatry: normal affect, normal judgment/insight, normal moodScoresGlasgowBradford Coma Score: Copyright Sir Michelet [place]lyn[place] Copyright Sir Michelet Hanna Eye opening: (4) Spontaneous Verbal response: (5) Oriented Best motor response: (6) Obeys commands GCS Score: 15Treatment ProphylaxisTreatment ProphylaxisLines: peripheralDiagnosis, Assessment PlanProblem List/A P: 1. Altered mental status 2. Psoriatic arthritis 3. Tobacco dependence 4. Morbid obesity with BMI of 40.0-44.9, adultOrders: Procedure Date/time Status MRI BRAIN W WO CONT 10/13 0333 Active COMPLETE METABOLIC PANEL 10/13 0333 Active CBC W/AUTO DIFFERENTIAL 10/13 0333 Active NOTHING BY MOUTH 10/12 L Complete REGULAR DIET 10/12 D Active Resuscitation Status 10/12 1215 Active Order Set Name 10/12 1215 Active Vital Signs +-POM 10/12 1215 Active Telemetry Initial Order 10/12 1215 Active Seizure Precautions 10/12 1215 Active Sequential Compression Device 10/12 1215 Active Saline Lock 10/12 1215 Active RT: Pulse Oximetry + 10/12 1215 Active Notify VS/I O 10/12 1215 Active Notify + 10/12 1215 Active MRSA Screening Protocol 10/12 1215 Active Assess Neurologic Status 10/12 1215 Active Aspiration Precautions 10/12 1215 Active Activity + 10/12 1215 Active EEG Up to 1 Hour 10/12 1215 Active VTE Prophylaxis Status 10/12 1215 Active Level of Care 10/12 1215 Active Admit Request 10/12 1215 Active Advance Diet as Tolerated 10/12 UNK ActiveConsultants: neurologyPlan discussed with: patient, family ( co-worker), collaborating MD, consultants, nurseCode Status/Resusc. DiscussionResuscitation discussion: Discussed with: patientCode status: full codeFree Text DxA P NotesFree Text DxA P Notes:10/13/2023 - AMS1. Altered mental status, R/O Sz vs CVA- CVA work up- Neuro checks Q1 x 12 hrs, then Q4 hrs for 24 hrs.- MRI brain w/o- 2D echo w/ bubble study- EEG pending- NPO until swallow study- PT/OT eval for rehab placement- permissive HTN per protocol- consulted Neuro, D/W Dr. Mcknight, input appreciated2. Psoriatic arthritis- continue home meds, pain control- Tylenol p.r.n., Mobic monitor Cr- home meds reconciled3. GERD- PPI GI Px., omeprazole 20 mg q.d.- home meds reconciled4. Morbid obesity , BMI 41.8- encourage diet, weight loss, exercise- lifestyle modifications- f/u PCP on D/C for wt. management- SCD's DVT/VTE Px.5. Tobacco dependence- encouraged cessation- nicotine patch p.r.n.- follow-up PCP for cessation management on D/C- > 3 mts spent on consultation/cessation6. Anxiety/Depression- hold welbutrin for Sz work up- restart on D/C when cleared by neuroDISPO: OBS, anticipate < 23 hrs overnight stay pending MRIFurther recommendations per Dr. Altman on attestationQuality: Gen Med Crit CareVTE ProphylaxisVTE prophylaxis initiated: yesCurrent MedicationsCurrent medication review:I attest that the foregoing medication list in the medical record is true,accurate, and complete to the best of my knowledge.BMI Screening > 25 or < 18.5Patient's BMI:Current BMI: 41.8BMI status/follow-up: abnl BMI, pt to F/U w/PCPTobacco Use/CounselingTobacco use/counseling: tobacco user, cessation child care counselor <3 minHTN Screening/Follow-upLast documented vitals:Last Documented: Result Date Time Pulse Ox 98 10/12 1328 B/P 130/87 10/12 1328 B/P Mean 101.2 10/12 1328 O2 Delivery Room air 10/12 1328 Temp 36.7 10/12 1328 Pulse 65 10/12 1328 Resp 18 10/12 1328B/P assess/follow-up: normal B/P, no f/u reqBlood pressure ranges/guide:Screening for Hypertension and follow up measure #[id number] pressure parameters Normal B/P SBP </= 119 DBP </= 79 Pre-hypertensive SBP 120-139 DBP 80-89 Hypertensive SBP >/= 140 DBP >/= 90LUCI ALTMAN MD 10/13/23 1471:AttestationsAttestation needed: supervising physicianPhysician AttestationAgree w/findings plan:I have personally seen and evaluated Mr. Enma Dubon. I reviewed thenotes and assessments performed by Miryam Novak PA-C. I independentlyperformed my own history and physical examination. I agree with the assessmentand plan as outlined in her note. I concur with her documentation of .In brief, Mr. Enma Dubon is a 53 year old male who presents foraltered mentation. Upon my evaluation, he is alert and oriented. Unclearetiology at this time. Neurology consulted - recommendations appreciated.Luci Altman M.D. at 1512 at 2252RPT #: [id number] OF REPORT Nasreen Shearer MD-13-Oct-2023 [facility] ([facility])EMERGENCY PROVIDER REPORTREPORT#:[id number] REPORT STATUS: SignedDATE:10/13/23 TIME: 0700PATIENT: ENMA DUBON UNIT #: [id number]#: [id number] ROOM/BED:AGE: 53 SEX: M PCP PHYS: Undefined ProviderSERVICE AUTHOR: Lety Downey MD* ALL edits or amendments must be made on the electronic/computer document *HPI-Stroke/CVAGeneralInitial Greet Date/Time 10/13/23 0700PresentationChief Complaint: Right Side Patient is a 53-year-old male who is [facility] when he was noted to be less responsive, sitting around a campfirewhere he has been both camping and working. Patient was reported to last beknown well at 5:00 a.m.. There is no additional history available. Patient wasgiven Narcan without any significant change. It was noted that patient doesrespond to deep sternal rub, but otherwise is minimally responsive butmaintaining his airway. On my exam patient only responds to deep sternal ruband does not speak.Risk-Stroke/CVARisk Stratification)( Initial NIH Stroke Scale )( Initial NIH Stroke Scale Response Value NIHSS Applicable? Yes 0 Level of Consciousness Movements to pain (2) 2 Ask Month Age Aphasic (2) 2 Blink Eyes/Squeeze Hands Performs both tasks (0) 0 Horizontal EOM NL side/side eye mvmt (0) 0 Visual Yoo No visual loss (0) 0 Facial Palsy Normal symmetry (0) 0 Right Arm Motor Drift (10s) Drift, not touch bed (1) 1 Left Arm Motor Drift (10s) Drift, not touch bed (1) 1 Right Leg Motor Drift (5s) No movement (4) 4 Left Leg Motor Drift (5s) No movement (4) 4 Limb Ataxia FNF/Heel-Byrd Does not understand (0) 0 Sensation (Arms/Legs/Face) Coma/unresponsive (2) 2 Language Aphasia Mute, global aphasia (3) 3 Dysarthria Mute, anarthric (2) 2 Extinction/Inattention Prfound jodi-inattent (2) 2 Total 23Review of SystemsROS StatementsUnable to Obtain ROS Medical conditionPMH-Stroke/CVAStated Complaint STROKEAllergiesCoded Allergies:No Known Allergies (10/13/23)Home MedicationsReported MedicationsbuPROPion HCL (Wellbutrin XL) 300 MG PO BEDTIMEMELOXICAM (MOBIC) 15 MG PO DAILYOmeprazole 20 MG PO C BKLORATADINE (CLARITIN) 10 MG PO DAILYPast Medical History:Reports: Arthritis.Physical ExamVital SignsVital SignsFirst Documented: Result Date Time Pulse Ox 97 10/12 0705 B/P 137/86 10/12 0705 B/P Mean 103 10/12 0705 O2 Delivery Room air 10/12 0705 Temp 36.2 10/12 0705 Pulse 78 10/12 0705 Resp 14 10/12 0705Last Documented: Result Date Time Pulse Ox 95 10/12 1000 B/P 116/65 10/12 1000 B/P Mean 84 10/12 1000 Pulse 71 10/12 1000 Resp 18 10/12 1000 O2 Delivery Room air 10/12 0705 Temp 36.2 10/12 0705Review of Vital Signs ReviewedBasic Physical ExamBasic PE HEAD: Atraumatic/NC, EYES: PERRL, conj clear, ENT: Membranes moist, ABD: Soft/non-tender, EXT: No gross abnormality, SKIN: No rashes, warm/dry, PSYCH:NL thought contentFocused PEGeneral/Const General/Const Awake, Alert, No acute distressMS Neck Neck Full range of motionResp/Chest Respiratory/Chest Breath sounds NL, Breath sounds = bilatCardiovascular Cardiovascular Heart rate NL, Regular rhythm, Heart sounds NLNeurologic Text/Dict NotesNIH 22 at 0700Interpretation DiagnosticsLab Results InterpretationResultsLaboratory Tests10/13/23 0707:[Embedded Image Not Available]Laboratory Tests: 10/12 10/12 10/12 10/12 0940 0940 0740 0731 Blood Gas Specimen Type Arterial Puncture Site Right Radial pH (7.35 - 7.45) 7.40 pCO2 (35 - 45 MMHG) 40 pO2 (80 - 100 MMHG) 68 L Bicarbonate Actual (22 - 26 MEQ/L) 24 O2 Saturation (94 - 98 %) 94 ABG pH (Temp Correct) (7.35 - 7.45) 7.40 ABG pCO2 (Temp Corrct (35 - 45 mmHg) 40 ABG pO2 (Temp Correct (80 - 100 mmHg) 61.0 L ABG PO2/FiO2 Ratio (>200 MMHG) 323.8 ABG HCO3 (22 - 26 mmol/L) 24.7 ABG O2 Sat (Calculated) (94 - 98 %) 91.0 L ABG Base Excess (-2.0 - 2.0 MEQ/L) -0.3 -0.1 Carboxyhemoglobin (1.5 - 5 % THGB) 2.9 Methemoglobin (0.0 - 1.5 %) 0.3 Total Hemoglobin (12.0 - 18.0 G/L) 15.6 O2 Delivery Device Room Air FiO2 (21 - 100 %) 21 Chemistry Ammonia (11.2 - 31.7 umol/L) 13 Creatine Kinase (46 - 171 Units/L) 299 H 10/12 10/12 0721 0710 Blood Gas Specimen Type Arterial ABG pH (Temp Correct) (7.35 - 7.45) 7.38 ABG pCO2 (Temp Corrct (35 - 45 mmHg) 45 ABG pO2 (Temp Correct (80 - 100 mmHg) < 38.3 CL ABG HCO3 (22 - 26 mmol/L) 26.4 H ABG Base Excess (-2.0 - 3.0 mmol/L) 0.8 Toxicology Salicylates (<29.0 mg/dL) <3.0 Acetaminophen (10.0 - 20.0 ug/mL) < 2.0 L Plasma/Serum Alcohol (0 - 10 mg/dL) < 3 10/12 10/12 0707 0659 Chemistry Sodium (136 - 145 mmol/L) 139 Potassium (3.4 - 5.1 mmol/L) 4.0 Chloride (98 - 107 mmol/L) 111 H Carbon Dioxide (20 - 31 mmol/L) 26 Anion Gap (5 - 15 MMOL/L) 2 L BUN (9 - 23 mg/dL) 13 Creatinine (0.70 - 1.30 mg/dL) 1.26 Est GFR (CKD-EPI 2020) (>/= 60) > 60 BUN/Creatinine Ratio (12 - 20 RATIO) 10 L Glucose (74 - 106 mg/dL) 119 H POC Glucose (70 - 110 MG/DL) 136 H Calcium (8.7 - 10.4 mg/dL) 9.6 Calcium Adj for Albumin (8.8 - 10.5 mg/dL) 9.3 Total Bilirubin (0.3 - 1.2 mg/dL) 0.4 AST (<34 Units/L) 35 H ALT (10 - 49 Units/L) 31 Alkaline Phosphatase (46 - 116 Units/L) 93 Troponin I High Sens (0 - 53 ng/L) < 3 Total Protein (5.7 - 8.2 g/dL) 6.8 Albumin (3.2 - 4.8 g/dL) 4.4 Globulin (2.2 - 4.0 G/DL) 2.4 Albumin/Globulin Ratio (0.7 - 2.0 RATIO) 1.8 Coagulation PT (10.0 - 12.8 Seconds) 10.9 INR (0.8 - 1.1) 1.0 APTT (25 - 38 Seconds) < 22 L Hematology WBC (4.23 - 9.07 K/MM3) 7.33 RBC (4.63 - 6.08 M/MM3) 5.12 Hgb (13.7 - 17.5 GM/DL) 15.1 Hct (40.1 - 51.0 %PCV) 44.7 MCV (79.0 - 92.2 FL) 87.3 MCH (25.7 - 32.2 PG) 29.5 MCHC (32.3 - 36.5 GM/DL) 33.8 RDW (11.6 - 14.4 %) 13.1 Plt Count (163 - 337 K/MM3) 197 MPV (9.4 - 12.4 FL) 10.6 Immature Gran % (Auto) (0.0 - 0.9 %) 0.4 Neut % (Auto) (34.0 - 67.9 %) 64.5 Lymph % (Auto) (21.8 - 53.1 %) 25.2 [place] % (Auto) (5.3 - 12.2 %) 7.2 Eos % (Auto) (0.8 - 7.0 %) 1.9 Baso % (Auto) (0.2 - 1.2 %) 0.8 Neut # (Auto) (1.78 - 5.38 K/MM3) 4.72 Immature Gran # (Auto) (0.0 - 0.3) 0.03 Absolute Eos (auto) (0.04 - 0.54 K/MM3) 0.14 Absolute Basos (auto) (0.01 - 0.08) 0.06 Nucleated RBC % (0 - 0.2 %) 0.0 Lymphocytes # (1.32 - 3.57 K/MM3) 1.85 Monocytes # (0.30 - 0.82) 0.53 Nucleated RBCs (0 - 0 KMM3) 0.00 Toxicology Urine Opiates Screen (300 ng/mL) NEGATIVE Ur Barbiturates Screen (200 ng/mL) NEGATIVE Ur Phencyclidine Scrn (25 ng/mL) NEGATIVE Ur Amphetamines Screen (1000 ng/mL) NEGATIVE U Benzodiazepines Scrn (200 ng/mL) NEGATIVE Urine Cocaine Screen (300 ng/mL) NEGATIVE U Cannabinoids Screen (50 ng/mL) POSITIVE H Urines Urine Color (Yellow) Light Yellow Urine Appearance (Clear) Clear Urine pH (5.0 - 8.0 mg/dL) 6.0 Ur Specific [place] (1.003 - 1.030) >1.030 Urine Protein (Negative mg/dL) 10 (Trace) Urine Ketones (Negative mg/dL) Negative Urine Blood (Negative mg/dL) 0.03 (Trace) H Urine Nitrite (Negative) Negative Urine Bilirubin (Negative mg/dL) Negative Urine Urobilinogen (Normal mg/dL) Normal Ur Leukocyte Esterase (Negative MANFRED/uL) Negative Urine RBC (0 - 5 /HPF) 6-9 H Urine WBC (0 - 5 /HPF) 0-1 Ur Epithelial Cells (0 - 2 /HPF) 0-1 Urine Bacteria (None Seen /HPF) None Seen Urine Mucus (3+ /LPF) Trace Urine Glucose (Negative mg/dL) NegativeRecent Impressions:COMPUTERIZED TOMOGRAPHY - CTA NECK W WO CONT 10/12 0705 Report Impression - Status: SIGNED Entered: 10/13/2023 0729IMPRESSION:No significant carotid artery stenosis.All CT scans at this facility use dose modulation, iterativereconstruction, and or weight based dosing when appropriate to reduceradiation dose to as low as reasonably achievable.Workstation Name: [id number] By: KARY MCKEE MDCOMPUTERIZED TOMOGRAPHY - CT HEAD/BRAIN W/O CONT 10/12 0705 Report Impression - Status: SIGNED Entered: 10/13/2023 0724IMPRESSION:No acute intracranial findings.All CT scans at this facility use dose modulation, iterativereconstruction, and or weight based dosing when appropriate to reduceradiation dose to as low as reasonably achievable.Workstation Name: [id number] By: KARY MCKEE MDCOMPUTERIZED TOMOGRAPHY - CTA HEAD W WO CONT 10/12 0705 Report Impression - Status: SIGNED Entered: 10/13/2023 0729IMPRESSION:No significant carotid artery stenosis.All CT scans at this facility use dose modulation, iterativereconstruction, and or weight based dosing when appropriate to reduceradiation dose to as low as reasonably achievable.Workstation Name: [id number] By: KARY MCKEE MDRADIOLOGY - XR CHEST 1V 10/12 0710 Report Impression - Status: SIGNED Entered: 10/13/2023 0818IMPRESSION:Minimal hazy opacity in the left lung base.Nonspecific elevation of the right hemidiaphragm.Workstation Name: [id number] By: KARY MCKEE MD Lab Imaging StatementLaboratory radiographic studies reviewed and considered in the medicaldecision-making.MDM-Stroke/CVAFree Text MDM NotesFree Text [facility] NotesPatient is a 53-year-old male with history of arthritis who presents to theemergency department as a stroke alert after he was noted to have an acutechange in mental status this morning.Differential diagnosis includes but is not limited to: CVA, substance use,metabolic encephalopathy.Patient's called to the scene reports that 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 She reports she spoke to him lastnight he was in his usual state of health. He does have arthritis but no otherknown medical problems. He does not use any substances routinely but did have acannabis gummy last night.All ordered tests were independently reviewed and interpreted by myself.Notably showing: Normal carboxyhemoglobin.Neurology consulted, Dr. Mcknight, patient's exam does not sound consistent withLVO.He has evaluated the patient in the emergency department. Patient is nowimproved, awake and alert, does complain heaviness to his legs, but has aninconsistent sensory exam in does have reflexes in his lower extremities. [place] check a voiding trial as patient was initially catheterization for urinespecimens responsive on arrival.Patient is able to void without difficulty.Patient has since co-worker present with him now who was staying with him. Theyare staying in the area in a camper doing tree cutting work. They reportedlyworked a normal day yesterday EKG, 8 a good dinner. The patient woke up about 5:00 a.m. to work today and sat on the edge of his bed and said he did not feelright, felt a little dizzy. He did get up and had a small amount of MountainDew, but continued to not feel well and tetanus seated position, and then stopsspeaking, at that point they call 911. Patient reports he has never had anepisode like this in the past. He reported to Neurology that he has had gummiespreviously.Patient to be admitted to Dr. Altman after consultation with BRAYDON Villarreal.Stroke Thrombolytic TherapyAdministered IV Thrombolytic? No, not indicatedED CourseMedication(s) OrderedMedication(s) Ordered:Electrolytic, Caloric, And Noa Sig/Rodríguez Start time Last Medication Dose Route Stop Time Status Admin Sodium Chloride 1,000 ML X1ED ONE 10/12 1000 DC 10/12 IV 10/12 1100 1016MDM-Independent InterpretationMy ECG Interpretation7:23 a.m., sinus rhythm at 76 beats per minute, no ectopy, no ST elevation ordepression noted.Patient Discharge DepartureVital Signs/ConditionVital SignsFirst Documented: Result Date Time Pulse Ox 97 10/12 0705 B/P 137/86 10/12 0705 B/P Mean 103 10/12 0705 O2 Delivery Room air 10/12 0705 Temp 36.2 10/12 0705 Pulse 78 10/12 0705 Resp 14 10/12 0705Last Documented: Result Date Time Pulse Ox 95 10/12 1000 B/P 116/65 10/12 1000 B/P Mean 84 10/12 1000 Pulse 71 10/12 1000 Resp 18 10/12 1000 O2 Delivery Room air 10/12 0705 Temp 36.2 10/12 0705All vital signs available at the time of this entry have been reviewed.Condition StableClinical ImpressionClinical ImpressionPrimary Impression: Altered mental statusDisposition DecisionHospitalize Hosp Physician Name Luci Altman MD )( Accepts Hospitalization Yes )( Accepted Time 7 )( Accepted Date 10/13/23 Call Information will see patientDischarge/Care PlanCounseled Regarding Diagnosis, Lab results, Imaging studies, Need for admissionReferralsPCP Referral: Undefined Provider Admit NoteI have spoken with the patient and/or caregivers. I have explained the patient'scondition, diagnoses and treatment plan based on the information available to meat this time. I have answered the patient's and/or caregiver's questions andaddressed any concerns. The patient and/or caregivers have as good anunderstanding of the patient's diagnosis, condition and treatment plan as can beexpected at this point. The patient has been stabilized within the capability ofthe emergency department. The patient will be transported for further care andmanagement or will be moved to an observation or inpatient service. I havecommunicated with the staff or medical practitioner taking over this patient'scare.Free Text Depart NotesFree Text Depart NotesNote: Portions of the medical record have been created with [email or web address] voicerecognition software. Occasional wrong word or eejva-p-jvcw substitutions mayhave occurred due to the Internet limitations of voice recognition software. Thetext is reviewed by myself, the physician, prior to signing, but occasionalerrors may still occur and should be interpreted within the context of aPhysician encounter. at 1110RPT #: [id number] OF REPORT Problems Psoriatic arthritis Onset:13-Oct-2023 Idania BRYSON Tobacco dependence syndrome Onset:13-Oct-2023 Idania BRYSON Morbid obesity Onset:13-Oct-2023 Idania BRYSON Altered mental status Onset:13-Oct-2023 Nasreen Shearer MD Mental Status Cognitive function finding 13-Oct-2023 Allergies and Adverse Reactions No Known Allergies(Allergy) Onset: 13-Oct-2023 Medications gadoterate meglumine;19 MILLILITER ONCALL Quantity:1 Idania BRYSON Start:14-Aje-1432Llb:17-Oct-2023 Status:Discontinued Comments:[id number] Administration Instructions:0.2 mL/kg (Max dose = 30 mL)*sterile tech to administer*HIGH PRIORITY 1 ML Sodium Chloride 9 MG/ML Prefilled Syringe;10 MILLILITER ONCALL Quantity:1 Idania BRYSON Start:95-Wpr-5095Rpx:17-Oct-2023 Status:Discontinued Comments:[id number] Administration Instructions:*histology tech to administer*HIGH PRIORITY meloxicam 15 MG Oral Tablet [Mobic];15 MILLIGRAM QAM Quantity:2 Idania BRYSON Start:14-Oct-2023 Status:Discontinued Comments:[id number] Administration Instructions:GIVE WITH FOOD pantoprazole 40 MG Delayed Release Oral Tablet [Protonix];40 MILLIGRAM QAM Quantity:1 Idania BRYSON Start:14-Oct-2023 Status:Discontinued Comments:[id number] Administration Instructions:AUTO SUB PER PT FOR: PRILOSEC 20 MG loratadine 10 MG Oral Tablet;10 MILLIGRAM QAM Quantity:1 Anupama Huang MD Start:14-Oct-2023 Status:Discontinued Comments:[id number] loratadine 10 MG Oral Tablet;10 MILLIGRAM DAILY Quantity:1 Idania BRYSON Start:14-Oct-2023 Status:Discontinued Comments:[id number] amLODIPine 5 MG Oral Tablet;5 MILLIGRAM PO DAILY Start:14-Oct-2023 Comments:5 MG PO DAILY 24 HR nicotine 0.875 MG/HR Transdermal System [Nicoderm C-Q];21 MILLIGRAM BEDTIME Quantity:1 Idania Bronson V BRAYDON Start:13-Oct-2023 Status:Discontinued Comments:[id number] Administration Instructions:Please ensure old patch is removed before applying new PATCH REMOVAL REMINDER_PATREMOVE;1 EACH BEDTIME Quantity:1 Idania Bronson V BRAYDON Start:13-Oct-2023 Status:Discontinued Comments:[id number] Administration Instructions:REMOVE NICOTINE PATCH DIRECTED ondansetron 2 MG/ML Injectable Solution [Zofran];4 MILLIGRAM Q4H PRN Quantity:1 Idania Bronson V BRAYDON Start:13-Oct-2023 Status:Discontinued Comments:[id number] acetaminophen 325 MG Oral Tablet [Tactinal];650 MILLIGRAM Q4H PRN Quantity:2 Idania Bronson V BRAYDON Start:13-Oct-2023 Status:Discontinued Comments:[id number] LORazepam 2 MG/ML Injectable Solution;2 MILLIGRAM Q4H PRN Quantity:1 Idania Bronson V BRAYDON Start:54-Vgx-4261Qfn:23-Oct-2023 Status:Discontinued Comments:[id number] calcium carbonate 500 MG Chewable Tablet;1000 MILLIGRAM Q6H PRN Quantity:2 Idania Bronson V BRAYDON Start:13-Oct-2023 Status:Discontinued Comments:[id number] Administration Instructions:GIVE WITH FOOD 1 ML Sodium Chloride 9 MG/ML Prefilled Syringe;[id number] r Administration Instructions:FILL IN DOSE WITH THEAPPROPRIATE AMOUNT TO FLUSH:ADULT: FLUSH WITH 10 ml AFTER MEDS AND LABS.MIDLINE: FLUSH WITH 20 ml.PEDIATRIAC: FLUSH WITH 3 ml. Quantity:0 Idania Bronson V BRAYDON Start:13-Oct-2023 Status:Discontinued Comments:[id number] Administration Instructions:FILL IN DOSE WITH THEAPPROPRIATE AMOUNT TO FLUSH:ADULT: FLUSH WITH 10 ml AFTER MEDS AND LABS.MIDLINE: FLUSH WITH 20 ml.PEDIATRIAC: FLUSH WITH 3 ml. PT REFRIGERATOR MED_PTFRIDGE;1 EACH PRN Quantity:1 Idania BRYSON Start:13-Oct-2023 Status:Discontinued Comments:[id number] Administration Instructions:ENTRY ALLOWS ACCESS TO PATIENT MEDICATIONS IN THE FRIDGE- sodium chloride 9 MG/ML Injectable Solution;[id number] Nasreen Shearer MD Start:63-Mdm-1984Ufv:2023 Comments:[id number] 24 HR buPROPion hydrochloride 300 MG Extended Release Oral Tablet;300 MG PO Start:13-Oct-2023 Comments:300 MG PO meloxicam 15 MG Oral Tablet;15 MILLIGRAM PO DAILY Start:13-Oct-2023 Status:Discontinued Comments:15 MG PO DAILY loratadine 10 MG Oral Capsule [Claritin];10 MILLIGRAM PO DAILY Start:13-Oct-2023 Comments:10 MG PO DAILY omeprazole 20 MG Delayed Release Oral Capsule;20 MILLIGRAM PO C BK Start:13-Oct-2023 Comments:20 MG PO C BK Procedures Monitoring of Central Nervou s Electrical Activity, External Approach Date:14-Oct-2023 MRI BRAIN W&WO CONTResult:[facility] Name: ENMA DUBON [address] [facility] Phys: [place] [address] : 1970 Age: 53 Sex: M Acct: [id number] Loc: F.307W A PHONE #: [phone] Exam Date: 10/14/2023 Status: ADM IN FAX #: [phone] Radiology No: Unit No: [id number] EXAMS: CPT CODE: [id number] MRI BRAIN W WO CONT [id number] EXAM DESCRIPTION: - MRI BRAIN W WO CONT HISTORY: ?. Seizures and stroke. No other history provided. COMPARISON: CT performed the previous day TECHNIQUE: Sagittal T1-weighted images were performed along with axial T1, T2, FLAIR, diffusion, and susceptibility images. ADC maps were created and reviewed. Coronal FLAIR images were performed. Following the intravenous administration of an unspecified amount of Dotarem, sagittal axial and coronal T1-weighted images were performed. FINDINGS: The brain parenchyma is unremarkable in appearance. There is no restricted diffusion to suggest acute ischemia. There is no abnormal susceptibility to suggest hemorrhage. No discrete mass or abnormal enhancement is identified. There is no extra-axial fluid collection identified. The ventricles and basal cisterns are midline without shift or obstruction. The major intracranial vessels demonstrate normal flow voids. The globes and orbits are unremarkable. The paranasal sinuses and mastoid air cells are clear. IMPRESSION: No acute intracranial findings are identified. Workstation Name: [id number] at [id number] Reported and signed by: LILIAM MCKEE MD CC: Miryam BRYSON Tech:LUZ SWANSON RT(MR)(R) Tech 2: Transcribed Date/Time: 10/14/2023 (0195)Prepared By: NEDA Somers Print D/T: S: 10/14/2023 (1979) BATCH NO: N/A PAGE 1 Signed Report Date:14-Oct-2023 Status:Completed XR CHEST 1VResult:[facility] Name: ENMA DUBON [address] [place] [address] Phys: [place] [address] : 1970 Age: 53 Sex: M Acct: [id number] Loc: F.ED PHONE #: [phone] Exam Date: 10/13/2023 Status: [facility] FAX #: [phone] Radiology No: Unit No: [id number] EXAMS: CPT CODE: [id number] XR CHEST 1V 69598 EXAM DESCRIPTION: - XR CHEST 1V HISTORY: Stroke. No other history provided. COMPARISON: Study performed the previous day. TECHNIQUE: AP chest. FINDINGS: The cardiomediastinal silhouette is midline and normal in contour. The right hemidiaphragm is mildly elevated. The left is mildly obscured. Osseous structures are unremarkable.. IMPRESSION: Minimal hazy opacity in the left lung base. Nonspecific elevation of the right hemidiaphragm. Workstation Name: [id number] at 0814 Reported and signed by: LILIAM MCKEE MD CC: Tech:YANA PETERSEN RT(R)(hydrator 2: Transcribed Date/Time: 10/13/2023 (0811)Prepared By: NEDA Orig Print D/T: S: 10/13/2023 (0818) BATCH NO: N/A PAGE 1 Signed Report Date:13-Oct-2023 Status:Completed CTA NECK W&WO CONTResult:[facility] Name: ENMA DUBON [facility] Phys: [place] [address] : 1970 Age: 53 Sex: M Acct: [id number] Loc: F.ED PHONE #: [phone] Exam Date: 10/13/2023 Status: REG ER FAX #: [phone] Radiology No: Unit No: [id number] EXAMS: CPT CODE: [id number] CTA NECK W WO CONT [id number] EXAM DESCRIPTION: - CTA NECK W WO CONT; - CTA HEAD W WO CONT HISTORY: STROKEP - Stroke Protocol Suspected hyperacute stroke. COMPARISON: None available. TECHNIQUE: Computed tomography of the head was performed without contrast according to standard protocol. Computed tomographic angiography was obtained from the level of the aortic arch to the vertex following the uneventful administration of 100mL of isovue 370 intravenous contrast according to hyperacute stroke protocol. Multiplanar reconstructions including maximum intesnity projection (MIP) reconstructions were performed on a separate workstation and interpreted. Contrast information: 100 mL Isovue 370 FINDINGS: HEAD CT FINDINGS: No visible acute hemorrhage or infarct. ANGIOGRAPHIC FINDINGS: The visualized aortic arch appears normal with normal configuration of the great vessels. There is no significant stenosis of the origins of the great vessels. There is no geographic area of vascular paucity in the brain. Left anterior circulation: L CCA: no occlusion or significant stenosis L carotid bifurcation: no occlusion or significant stenosis L ICA proximal: no occlusion or significant stenosis L ICA distal: no occlusion or significant stenosis L ICA terminus: no occlusion or significant stenosis L M1: no occlusion or significant stenosis L M2 branches: no occlusion or significant stenosis L A2: no occlusion or significant stenosis PAGE 1 Signed Report (CONTINUED) [facility] Name: ENMA DUBON [employer] Phys: [place] [address] : 1970 Age: 53 Sex: M Acct: [id number] Loc: F.ED PHONE #: [phone] Exam Date: 10/13/2023 Status: REG ER FAX #: [phone] Radiology No: Unit No: [id number] EXAMS: CPT CODE: [id number] CTA NECK W WO CONT [id number] <Continued> Right anterior circulation: R CCA: no occlusion or significant stenosis R carotid bifurcation: no occlusion or significant stenosis R ICA proximal: no occlusion or significant stenosis R ICA distal: no occlusion or significant stenosis R ICA terminus: no occlusion or significant stenosis R M1: no occlusion or significant stenosis R M2 branches: no occlusion or significant stenosis R A2: no occlusion or significant stenosis Posterior circulation: L Vertebral Artery: no occlusion or significant stenosis R Vertebral Artery: no occlusion or significant stenosis Basilar Artery: no occlusion or significant stenosis L LEAD DATABASE ADMINISTRATOR: no occlusion or significant stenosis R LEAD DATABASE ADMINISTRATOR: no occlusion or significant stenosis No cerebral aneurysm is seen. There is no evidence for an arteriovenous malformation. There is no suspicious cervical lymphadenopathy. There is multilevel cervical spondylosis. The pulmonary apices are clear. Very poor dentition is noted. This is out of proportion to age. IMPRESSION: No significant carotid artery stenosis. All CT scans at this facility use dose modulation, iterative reconstruction, and or weight based dosing when appropriate to reduce radiation dose to as low as reasonably achievable. Workstation Name: [id number] at 0704 Reported and signed by: LILIAM MCKEE MD PAGE 2 Signed Report (CONTINUED) [facility] Name: LINGENMA [address] [place] [address] Phys: José [place] [address] : 1970 Age: 53 Sex: M Acct: [id number] Loc: F.ED PHONE #: [phone] Exam Date: 10/13/2023 Status: REG ER FAX #: [phone] Radiology No: Unit No: [id number] EXAMS: CPT CODE: [id number] CTA NECK W WO CONT [id number] <Continued>CC: Tech:LEENA SEN RT(R) Tech 2: Transcribed Date/Time: 10/13/2023 (0722)Prepared By: NEDA Somers Print D/T: S: 10/13/2023 (0729) BATCH NO: N/A PAGE 3 Signed Report Date:13-Oct-2023 Status:Completed CTA HEAD W&WO CONTResult:[facility] Name: ENMA DUBON myAchy [facility] Phys: [place] [address] : 1970 Age: 53 Sex: M Acct: [id number] Loc: F.ED PHONE #: [phone] Exam Date: 10/13/2023 Status: REG ER FAX #: [phone] Radiology No: Unit No: [id number] EXAMS: CPT CODE: [id number] CTA HEAD W WO CONT [id number] EXAM DESCRIPTION: - CTA NECK W WO CONT; - CTA HEAD W WO CONT HISTORY: STROKEP - Stroke Protocol Suspected hyperacute stroke. COMPARISON: None available. TECHNIQUE: Computed tomography of the head was performed without contrast according to standard protocol. Computed tomographic angiography was obtained from the level of the aortic arch to the vertex following the uneventful administration of 100mL of isovue 370 intravenous contrast according to hyperacute stroke protocol. Multiplanar reconstructions including maximum intesnity projection (MIP) reconstructions were performed on a separate workstation and interpreted. Contrast information: 100 mL Isovue 370 FINDINGS: HEAD CT FINDINGS: No visible acute hemorrhage or infarct. ANGIOGRAPHIC FINDINGS: The visualized aortic arch appears normal with normal configuration of the great vessels. There is no significant stenosis of the origins of the great vessels. There is no geographic area of vascular paucity in the brain. Left anterior circulation: L CCA: no occlusion or significant stenosis L carotid bifurcation: no occlusion or significant stenosis L ICA proximal: no occlusion or significant stenosis L ICA distal: no occlusion or significant stenosis L ICA terminus: no occlusion or significant stenosis L M1: no occlusion or significant stenosis L M2 branches: no occlusion or significant stenosis L A2: no occlusion or significant stenosis PAGE 1 Signed Report (CONTINUED) [facility] Name: ENMA DUBON [address] [employer] Phys: [place] [address] : 1970 Age: 53 Sex: M Acct: [id number] Loc: F.ED PHONE #: [phone] Exam Date: 10/13/2023 Status: REG ER FAX #: [phone] Radiology No: Unit No: [id number] EXAMS: CPT CODE: [id number] CTA HEAD W WO CONT [id number] <Continued> Right anterior circulation: R CCA: no occlusion or significant stenosis R carotid bifurcation: no occlusion or significant stenosis R ICA proximal: no occlusion or significant stenosis R ICA distal: no occlusion or significant stenosis R ICA terminus: no occlusion or significant stenosis R M1: no occlusion or significant stenosis R M2 branches: no occlusion or significant stenosis R A2: no occlusion or significant stenosis Posterior circulation: L Vertebral Artery: no occlusion or significant stenosis R Vertebral Artery: no occlusion or significant stenosis Basilar Artery: no occlusion or significant stenosis L LEAD DATABASE ADMINISTRATOR: no occlusion or significant stenosis R LEAD DATABASE ADMINISTRATOR: no occlusion or significant stenosis No cerebral aneurysm is seen. There is no evidence for an arteriovenous malformation. There is no suspicious cervical lymphadenopathy. There is multilevel cervical spondylosis. The pulmonary apices are clear. Very poor dentition is noted. This is out of proportion to age. IMPRESSION: No significant carotid artery stenosis. All CT scans at this facility use dose modulation, iterative reconstruction, and or weight based dosing when appropriate to reduce radiation dose to as low as reasonably achievable. Workstation Name: [id number] at [id number] Reported and signed by: LILIAM MCKEE MD PAGE 2 Signed Report (CONTINUED) [facility] Name: ENMA DUBON [address] [place] [address] Phys: [place] [address] : 1970 Age: 53 Sex: M Acct: [id number] Loc: F.ED PHONE #: [phone] Exam Date: 10/13/2023 Status: REG ER FAX #: [phone] Radiology No: Unit No: [id number] EXAMS: CPT CODE: [id number] CTA HEAD W WO CONT [id number] <Continued>CC: Tech:LEENA SEN RT(R) Tech 2: Transcribed Date/Time: 10/13/2023 (0722)Prepared By: NEDA Orig Print D/T: S: 10/13/2023 (0729) BATCH NO: N/A PAGE 3 Signed Report Date:13-Oct-2023 Status:Completed CT HEAD/BRAIN W/O CONTResult:[facility] Name: ENMA DUBON [address] [place], [place] [address] Phys: [place] [address] : 1970 Age: 53 Sex: M Acct: [id number] Loc: F.ED PHONE #: [phone] Exam Date: 10/13/2023 Status: REG ER FAX #: [phone] Radiology No: Unit No: [id number] EXAMS: CPT CODE: [id number] CT HEAD/BRAIN W/O CONT [id number] EXAM DESCRIPTION: - CT HEAD/BRAIN W/O CONT HISTORY: STROKEP - Stroke Protocol. Stroke protocol. No other history provided. COMPARISON: None. TECHNIQUE: CT scan of the brain performed without intravenous contrast. FINDINGS: The brain parenchyma is unremarkable in appearance. There is no CT evidence of acute ischemia; however, MRI is more sensitive and specific. There is no evidence of hemorrhage, mass effect, shift of midline, or suspicious extra-axial fluid collection. The ventricles and basal cisterns are midline without shift or obstruction. The visualized paranasal sinuses and mastoid air cells are clear. The globes and orbits demonstrate no acute abnormality. The calvarium and skull base are intact. IMPRESSION: No acute intracranial findings. All CT scans at this facility use dose modulation, iterative reconstruction, and or weight based dosing when appropriate to reduce radiation dose to as low as reasonably achievable. Workstation Name: [id number] at 0720 Reported and signed by: LILIAM MCKEE MD CC: Tech:LEENA MARQUIS(R) Tech 2: Transcribed Date/Time: 10/13/2023 (718)Prepared By: NEDA Somers Print D/T: S: 10/13/2023 (0724) BATCH NO: N/A PAGE 1 Signed Report Date:13-Oct-2023 Status:Completed Social History Smoking Status Smokes tobacco daily Recorded: 13-Oct-2023 Results MRSA Surveillance Screen Ordered On:14-Oct-2023 Comments:Source: NOSE 15-Oct-2023 16:22 MRSA Surveillance ScreenSpecialResults:NEGMRSA Chromagar Screen Negative CBC W/AUTO DIFFERENTIAL Ordered On:14-Oct-2023 04:17 BASOPHIL #0.06(Normal) Range:0 .01-0.08 BASOPHIL %0.9%(Normal) Range:0.2 %-1.2% EOSINOPHIL #0.2210*3/uL(Normal) Range:0.0410*3/uL-0.5410*3/uL EOSINOPHIL %3.2%(Normal) Range:0 .8%-7% XTLZHQHQEY72.2{%PCV}(Normal) Ran ge:40.1{%PCV}-51{%PCV} BKTWELGJBZ31.9g/dL(Normal) Range :13.7g/dL-17.5g/dL IMMATURE GRANULOCYTE #0.05(Normal) Range:0-0.3 IMMATURE GRANULOCYTE %0.7%(Normal) Range:0%-0.9% IMMATURE RETIC FRACTION9.4%(Normal) Range:2.3%-13.4% LYMPHOCYTE #2.5310*3/uL(Normal) Range:1.3210*3/uL-3.5710*3/uL LYMPHOCYTE %36.2%(Normal) Range: 21.8%-53.1% MEAN CELL HGB29.4pg(Normal) Rang e:25.7pg-32.2pg MEAN CELL HGB OEIJSRZBPPTEM32.7g/dL(Normal) Range:32.3g/dL-36.5g/dL MEAN CELL BPJNXT44.4fL(Normal) Range:79fL-92.2fL MONOCYTE #0.52(Normal) Range:0.3 -0.82 MONOCYTE %7.4%(Normal) Range:5.3 %-12.2% MEAN PLATELET EYRFGT26.8fL(Normal) Range:9.4fL-12.4fL NEUTROPHIL #3.6010*3/uL(Normal) Range:1.7810*3/uL-5.3810*3/uL NEUTROPHIL %51.6%(Normal) Range: 34%-67.9% NUCLEATED RED BLOOD CELL0.00{KMM3}(Normal) Range:0{KMM3}-0{KMM3} NUCLEATED RED BLOOD CELL %0.0%(Normal) Range:0%-0.2% PLATELET WPUND48101*3/uL(Normal) Range:97968*3/uL-40894*3/uL RED BLOOD CELL5.06{M/MM3}(Normal) Range:4.63{M/MM3}-6.08{M/MM3} RED CELL DISTRIBUTIO N WIDTH13.2%(Normal) Range:11.6%-14.4% RETICULOCYTE JWNEQNALQZ92.8pg(Normal) Range:28.2pg-35.7pg WBC COUNT BLD6.9810*3/uL(Normal) Range:4.2310*3/uL-9.0710*3/uL COMP METABOLIC PANEL Ordered On:14-Oct-2023 05:07 ALBUMIN/GLOBULIN RATIO1.7{ratio}(Normal) Range:0.7{ratio}-2{ratio} ALBUMIN SERUM4.0g/dL(Normal) Ran ge:3.2g/dL-4.8g/dL ALKALINE GNLTYKNOBAU12M/L(Normal) Range:46U/L-116U/L ALT29U/L(Normal) Range:10U/L-49U /L AST27U/L Range:0-34U/L BILIRUBIN TOTAL0.3mg/dL(Normal) Range:0.3mg/dL-1.2mg/dL Comments:THE PERFORMANCE OF THIS ASSAY HAS NOT BEENESTABLISHED/TESTED FOR /PEDIATRIC POPULATION. BUN/CREATININE RATIO10{ratio}(Low) Range:12{ratio}-20{ratio} UJN80oj/dL(Normal) Range:9mg/dL- 23mg/dL CALCIUM TOTAL8.7mg/dL(Normal) Ra nge:8.7mg/dL-10.4mg/dL CORRECTED CALCIUM8.7mg/dL(Low) Range:8.8mg/dL-10.5mg/dL Comments:Calcium corrected for Albumin. TYNAYWGY822lpmg/L(High) Range:98 mmol/L-107mmol/L CARBON BBXZHWF57frhu/L(Normal) Range:20mmol/L-31mmol/L CREATININE BLD1.10mg/dL(Normal) Range:0.7mg/dL-1.3mg/dL ANION RVJ3nchs/L(Normal) Range:5 mmol/L-15mmol/L eGFR> 60 Range:>/= 60 Comments:The eGFR is calculated using the 2020 CKD-EPI Cr equation,which includes serum Cr, age, and sex but does not include arace coefficient. The National Kidney Foundation recommendsthis formula for calculation eGFR in adults. GFR will notcalculate if sex is unknown or patient age is <18 years.Ref range: >/=60 mL/min/1.73 m2 GLOBULIN2.3g/dL(Normal) Range:2. 2g/dL-4g/dL GLUCOSE BLOOD KYXSV495ti/dL(Normal) Range:74mg/dL-106mg/dL POTASSIUM BLD4.0mmol/L(Normal) Range:3.4mmol/L-5.1mmol/L NLEBKF452jiwv/L(Normal) Range:13 6mmol/L-145mmol/L TOTAL PROTEIN BLD6.3g/dL(Normal) Range:5.7g/dL-8.2g/dL LIPID PANEL Ordered On:14-Oct-2023 05:07 CHOLESTEROL/HDL RATIO5.2(Normal) Range:3.9-5.2 AJVOCAEKBEW050wd/dL Range:0-200m g/dL HDL HNAYDTAXVQI42ou/dL(Low) Rang e:40mg/dL-60mg/dL Comments:Low High-Density Lipoprotein (HDL) cholesterol correlateswith increased risk for coronary heart disease (CHD). LDL RSZVLRPEAEY17oa/dL(Normal) Range:92mg/dL-130mg/dL RQZDDUPMCYAAO544ub/dL(High) Rang e:0-150mg/dL VLDL TGLPRIONEPD06sh/dL(High) Ra nge:1mg/dL-41mg/dL AMMONIA Ordered On:13-Oct-2023 10:34 YNTCMAL19jsac/L(Normal) Range: 11.2umol/L-31.7umol/L CREATINE KINASE Ordered On:13-Oct-2023 10:44 CREATINE JXHICJ912B/L(High) Ra nge:46U/L-171U/L ARTERIAL BLOOD GAS/CO-OX Ordered On:13-Oct-2023 07:50 ABG BASE EXCESS-0.3meq/L(Normal) Range:-2meq/L-2meq/L CO-OX CARBOXYHEMOGLOBIN2.9{%_THGB}( Normal) Range:1.5{%_THGB}-5{%_THGB} Comments:DESCRIPTION:HbCOSmok er Normal range 1.5- 5%Smoker Panic range >10Non-Smoker Normal range <1.5Non-Smoker Panic range >5 ABG XFV845%(Normal) Range:21%-10 0% ABG XBTKFKNTUAS17cbz/L(Normal) Range:22meq/L-26meq/L CO-OX METHEMOGLOBIN0.3%(Normal) Range:0%-1.5% CO-OX O2 KYTVPNUHPW43%(Normal) Range:94%-98% ABG SNZ350fe[Hg](Normal) Range:3 5mm[Hg]-45mm[Hg] BLOOD PO2/FiO2 Ibqig986.8mm[Hg] Range:200mm[Hg]-0 ABG BLOOD GAS PH7.40(Normal) Ran ge:7.35-7.45 ABG GAS TZ873yf[Hg](Low) Range:8 0mm[Hg]-100mm[Hg] ABG SITERight Radial CO-OX TOTAL VKTFUVUIKY61.6g/L(Normal) Range:12g/L-18g/L Arterial Blood Gas Ordered On:13-Oct-2023 07:35 BG Delivery SystemRoom Air BG Sample TypeArterial Base Excess Arterial-0.1mmol/L(Normal) Range:-2mmol/L-3mmol/L HCO3 Vcdhbmnt20.7mmol/L(Normal) Range:22mmol/L-26mmol/L pCO2 Fnszccuk30rf[Hg](Normal) Ra nge:35mm[Hg]-45mm[Hg] pH Arterial7.40(Normal) Range:7. 35-7.45 pO2 Amvtcqsu64.0mm[Hg](Low) Rang e:80mm[Hg]-100mm[Hg] O2 Saturation Zrfvsxza96.0%(Low) Range:94%-98% Arterial Blood Gas Ordered On:13-Oct-2023 07:27 BG Sample TypeArterial Base Excess Arterial0.8mmol/L(Normal) Range:-2mmol/L-3mmol/L HCO3 Awkmmgvg19.4mmol/L(High) Ra nge:22mmol/L-26mmol/L pCO2 Lnesyvcu69ay[Hg](Normal) Ra nge:35mm[Hg]-45mm[Hg] pH Arterial7.38(Normal) Range:7. 35-7.45 pO2 Arterial< 38.3mm[Hg](Critical low) Range:80mm[Hg]-100mm[Hg] ACETAMINOPHEN Ordered On:13-Oct-2023 07:48 ACETAMINOPHEN< 2.0ug/mL(Low) R theresa:10ug/mL-20ug/mL SALICYLATE Ordered On:13-Oct-2023 07:48 SALICYLATE<3.0mg/dL Range:0-29 mg/dL ALCOHOL BLOOD Ordered On:13-Oct-2023 07:48 ALCOHOL BLOOD< 3mg/dL(Normal) Range:0mg/dL-10mg/dL Comments:FOR MEDICAL/DIAGNOSTIC USE ONLY.Divide mg/dl by 1000 to convert to g% CBC W/AUTO DIFFERENTIAL Ordered On:13-Oct-2023 07:39 BASOPHIL #0.06(Normal) Range:0 .01-0.08 BASOPHIL %0.8%(Normal) Range:0.2 %-1.2% EOSINOPHIL #0.1410*3/uL(Normal) Range:0.0410*3/uL-0.5410*3/uL EOSINOPHIL %1.9%(Normal) Range:0 .8%-7% DGGBTFZUQW60.7{%PCV}(Normal) Ran ge:40.1{%PCV}-51{%PCV} DAGYEVLAMT35.1g/dL(Normal) Range :13.7g/dL-17.5g/dL IMMATURE GRANULOCYTE #0.03(Normal) Range:0-0.3 IMMATURE GRANULOCYTE %0.4%(Normal) Range:0%-0.9% IMMATURE RETIC FRACTION8.7%(Normal) Range:2.3%-13.4% LYMPHOCYTE #1.8510*3/uL(Normal) Range:1.3210*3/uL-3.5710*3/uL LYMPHOCYTE %25.2%(Normal) Range: 21.8%-53.1% MEAN CELL HGB29.5pg(Normal) Rang e:25.7pg-32.2pg MEAN CELL HGB BECBDFOMOVMNB62.8g/dL(Normal) Range:32.3g/dL-36.5g/dL MEAN CELL BQXXGZ29.3fL(Normal) Range:79fL-92.2fL MONOCYTE #0.53(Normal) Range:0.3 -0.82 MONOCYTE %7.2%(Normal) Range:5.3 %-12.2% MEAN PLATELET IKNLYA01.6fL(Normal) Range:9.4fL-12.4fL NEUTROPHIL #4.7210*3/uL(Normal) Range:1.7810*3/uL-5.3810*3/uL NEUTROPHIL %64.5%(Normal) Range: 34%-67.9% NUCLEATED RED BLOOD CELL0.00{KMM3}(Normal) Range:0{KMM3}-0{KMM3} NUCLEATED RED BLOOD CELL %0.0%(Normal) Range:0%-0.2% PLATELET INSJR48053*3/uL(Normal) Range:82630*3/uL-38966*3/uL RED BLOOD CELL5.12{M/MM3}(Normal) Range:4.63{M/MM3}-6.08{M/MM3} RED CELL DISTRIBUTIO N WIDTH13.1%(Normal) Range:11.6%-14.4% RETICULOCYTE WLUSMURVCB53.9pg(Normal) Range:28.2pg-35.7pg WBC COUNT BLD7.3310*3/uL(Normal) Range:4.2310*3/uL-9.0710*3/uL COMP METABOLIC PANEL Ordered On:13-Oct-2023 07:50 ALBUMIN/GLOBULIN RATIO1.8{ratio}(Normal) Range:0.7{ratio}-2{ratio} ALBUMIN SERUM4.4g/dL(Normal) Ran ge:3.2g/dL-4.8g/dL ALKALINE RXEGLWJWYBZ50B/L(Normal) Range:46U/L-116U/L ALT31U/L(Normal) Range:10U/L-49U /L AST35U/L(High) Range:0-34U/L BILIRUBIN TOTAL0.4mg/dL(Normal) Range:0.3mg/dL-1.2mg/dL Comments:THE PERFORMANCE OF THIS ASSAY HAS NOT BEENESTABLISHED/TESTED FOR /PEDIATRIC POPULATION. BUN/CREATININE RATIO10{ratio}(Low) Range:12{ratio}-20{ratio} BYS70vm/dL(Normal) Range:9mg/dL- 23mg/dL CALCIUM TOTAL9.6mg/dL(Normal) Ra nge:8.7mg/dL-10.4mg/dL RSFXBEBW806bcck/L(High) Range:98 mmol/L-107mmol/L CARBON RVYOOYU34altz/L(Normal) Range:20mmol/L-31mmol/L CREATININE BLD1.26mg/dL(Normal) Range:0.7mg/dL-1.3mg/dL ANION ELG0bqjr/L(Low) Range:5mmo l/L-15mmol/L eGFR> 60 Range:>/= 60 Comments:The eGFR is calculated using the 2020 CKD-EPI Cr equation,which includes serum Cr, age, and sex but does not include arace coefficient. The National Kidney Foundation recommendsthis formula for calculation eGFR in adults. GFR will notcalculate if sex is unknown or patient age is <18 years.Ref range: >/=60 mL/min/1.73 m2 GLOBULIN2.4g/dL(Normal) Range:2. 2g/dL-4g/dL GLUCOSE BLOOD GPBJJ732ek/dL(High) Range:74mg/dL-106mg/dL POTASSIUM BLD4.0mmol/L(Normal) Range:3.4mmol/L-5.1mmol/L WGZGUJ974qxgl/L(Normal) Range:13 6mmol/L-145mmol/L TOTAL PROTEIN BLD6.8g/dL(Normal) Range:5.7g/dL-8.2g/dL CORRECTED CALCIUM9.3mg/dL(Normal) Range:8.8mg/dL-10.5mg/dL Comments:Calcium corrected for Albumin. TROPI HIGH SENSITIVITY Ordered On:13-Oct-2023 07:50 TROPI HIGH SENSITIVI TY< 3ng/L(Normal) Range:0ng/L-53ng/L URINALYSIS W/ REFLEX CULTURE Ordered On:13-Oct-2023 Comments:Indication for culture: Dysuria/Frequency 13-Oct-2023 08:37 UA APPEARANCEClear Range:Clear UA BILIRUBIN DIPSTICKNegativemg/dL Range:Negative mg/dL UA BLOOD DIPSTICK0.0 3 (Trace)mg/dL(Abnormal) Range:Negative mg/dL UA COLORLight Yellow Range:Yello w UA GLUCOSE DIPSTICKNegativemg/dL Range:Negative mg/dL UA KETONE DIPSTICKNegativemg/dL Range:Negative mg/dL UA LEUKOCYTE ESTERAS E DIPSTICKNegative{MANFRED/uL} Range:Negative MANFRED/uL UA NITRITE DIPSTICKNegative Rang e:Negative UA PH DIPSTICK6.0mg/dL Range:5mg /dL-8mg/dL UA PROTEIN DIPSTICK1 0 (Trace)mg/dL Range:Negative mg/dL SPECIFIC GRAVITY UR>1.030 Range: 1.003-1.03 UA UROBILINOGEN DIPSTICKNormalmg/dL Range:Normal mg/dL UA MICROSCOPIC Ordered On:13-Oct-2023 Comments: Indication for culture: Dysuria/Frequency 13-Oct-2023 08:37 UA BACTERIANone Seen/[HPF] Ran ge:None Seen /HPF UA EPITHELIAL CELLS0-1/[HPF] Ran ge:0/[HPF]-2/[HPF] UA RBC6-9/[HPF](Abnormal) Range: 0/[HPF]-5/[HPF] UA WBC0-1/[HPF] Range:0/[HPF]-5/ [HPF] UA MUCUSTrace/[LPF] Range:3+ /LP F PROTHROMBIN TIME Ordered On:13-Oct-2023 09:13 INTERNATIONAL NORMAL RATIO1.0(Normal) Range:0.8-1.1 Comments:New methodology, please review new reference ranges.Use INR for clinical decision making --Recommended Therapeutic Range:INDICATION TARGETED INR RANGEOn-X Valve (Aortic position) 1.5-2.0Prevention and treatment of VTE 2.0-3.0Atrial Fibrillation 2.0-3.0Acute myocardial infarction 2.0-3.0Valvular heart disease 2.0-3.0Prosthetic tissue heart valves 2.5-3.5Recurrent Thromboembolism 2.5-3.5Targeted INR range of 2.0-3.0 is appropriate for patientswho have a mechanical bileaflet in the aortic position,normal cardiac chamber size, and no other risk factors forstroke.Co-administration of argatroban and warfarin produces acombined effect on INR. Consult pharmacist or physician todetermine if warfarin dose should be held when INR iselevated and patient is receiving argatroban. PROTHROMBIN TIME XXQJGPT97.9s(Normal) Range:10s-12.8s PTT Ordered On:13-Oct-2023 09:13 PTT< 22s(Low) Range:25s-38s Comments:Therapeutic Heparin range is 58-92 seconds. URINE DRUG SCREEN QUAL Ordered On:13-Oct-2023 10:00 AMPHETAMINES QUAL URNEGATIVE R theresa:1000 ng/mL BARBITURATES QUAL URNEGATIVE Ran ge:200 ng/mL BENZODIAZEPINE QUAL URNEGATIVE Range:200 ng/mL COCAINE QUAL URNEGATIVE Range:30 0 ng/mL OPIATES QUAL URNEGATIVE Range:30 0 ng/mL PHENCYCLIDINE QUAL URNEGATIVE Ra nge:25 ng/mL Comments:FOR MEDICAL/DIAGNOSTIC USE ONLY POSITIVE RESULTS UNCONFIRMED: CONFIRMATION BY REQUEST REFERENCE INDICATES THE CUT-OFF FOR POSITIVE TEST RESULTS CANNABINOIDS QUAL URPOSITIVE(Abnormal) Range:50 ng/mL GLUCOSE BY MONITORING DEVICE Ordered On:13-Oct-2023 Comments:CAPILLARY 13-Oct-2023 07:03 GLUCOSE BY MONITORIN G HSSGKT263nu/dL(High) Range:70mg/dL-110mg/dL Vital Signs 14-Oct-2023 15:31 TEMP WWSWMZH84.4c Comments:36.4 Pulse74 Comments:74 Respiratory Rate18 Comments:18 O2 SAT98% Comments:98 BP Hsodreix566hs[Hg] Comments:13 6 BP Uirahfxqi53em[Hg] Comments:82 14-Oct-2023 11:43 TEMP SSAONUI39.6c Comments:36.6 Pulse65 Comments:65 Respiratory Rate18 Comments:18 O2 SAT98% Comments:98 BP Aajbmvni252kt[Hg] Comments:13 3 BP Muzcwxcgj47fm[Hg] Comments:85 14-Oct-2023 07:39 TEMP VAZQZGS32.5c Comments:36.5 Pulse60 Comments:60 Respiratory Rate18 Comments:18 O2 SAT95% Comments:95 BP Yvcpjjab369gh[Hg] Comments:12 6 BP Fgkxaplwv83zp[Hg] Comments:81 14-Oct-2023 04:04 TEMP XQQUDLY98.4c Comments:36.4 Pulse55 Comments:55 Respiratory Rate14 Comments:14 O2 SAT97% Comments:97 BP Clmwvavt972jo[Hg] Comments:13 2 BP Unqtkwfud54uc[Hg] Comments:80 13-Oct-2023 23:55 TEMP UUMRMAW07.9c Comments:36.9 Pulse70 Comments:70 Respiratory Rate14 Comments:14 O2 SAT97% Comments:97 BP Yfnrnvef242bz[Hg] Comments:12 7 BP Bfkcbxsdh32hw[Hg] Comments:75 13-Oct-2023 20:07 TEMP VTYGHLZ26.8c Comments:36.8 Pulse75 Comments:75 Respiratory Rate15 Comments:15 O2 SAT97% Comments:97 BP Xfuhxvgs311do[Hg] Comments:13 8 BP Bmawxvzqt03cx[Hg] Comments:80 13-Oct-2023 16:18 TEMP BHRGFSY04.8c Comments:36.8 Pulse66 Comments:66 Respiratory Rate19 Comments:19 O2 SAT98% Comments:98 BP Hpaocnlq730gd[Hg] Comments:16 2 BP Mnlcqtuqw57px[Hg] Comments:92 13-Oct-2023 13:28 TEMP UPWODVC32.7c Comments:36.7 Pulse65 Comments:65 Respiratory Rate18 Comments:18 O2 SAT98% Comments:98 BP Ubkpciak170bp[Hg] Comments:13 0 BP Uegztouoh72ih[Hg] Comments:87 13-Oct-2023 12:30 Pulse75 Comments:75 O2 SAT95% Comments:95 BP Phguratm398dq[Hg] Comments:12 2 BP Ttuugrqbs80wu[Hg] Comments:71 13-Oct-2023 12:15 Pulse74 Comments:74 O2 SAT97% Comments:97 BP Mggdqzqb415mp[Hg] Comments:12 1 BP Goapxehxi21wh[Hg] Comments:69 13-Oct-2023 12:05 O2 SAT96% Comments:96 13-Oct-2023 12:00 Pulse66 Comments:66 BP Fqgrpjxh601we[Hg] Comments:11 6 BP Jlifydsti60uo[Hg] Comments:66 13-Oct-2023 11:45 Pulse71 Comments:71 O2 SAT96% Comments:96 BP Qaxmvgph883vs[Hg] Comments:12 0 BP Ewengrwvo81ho[Hg] Comments:68 13-Oct-2023 11:30 Pulse69 Comments:69 O2 SAT92% Comments:92 BP Bfwbgxqc624kl[Hg] Comments:10 7 BP Soilwktot59re[Hg] Comments:65 13-Oct-2023 11:15 Pulse67 Comments:67 O2 SAT93% Comments:93 BP Jvyyjequ343vz[Hg] Comments:11 1 BP Uovrskpwv19ak[Hg] Comments:66 13-Oct-2023 11:00 Pulse63 Comments:63 Respiratory Rate18 Comments:18 O2 SAT95% Comments:95 BP Kictypxp994mp[Hg] Comments:10 7 BP Nxqbrmxwr99ym[Hg] Comments:63 13-Oct-2023 10:00 Pulse71 Comments:71 Respiratory Rate18 Comments:18 O2 SAT95% Comments:95 BP Dvlclubz735kn[Hg] Comments:11 6 BP Zivgpnefp91mo[Hg] Comments:65 13-Oct-2023 09:50 O2 SAT96% Comments:96 13-Oct-2023 09:45 Pulse75 Comments:75 BP Hneqjtfa422jn[Hg] Comments:13 6 BP Euamtoxol54jm[Hg] Comments:77 13-Oct-2023 09:40 Respiratory Rate18 Comments:18 13-Oct-2023 09:30 Pulse80 Comments:80 Respiratory Rate20 Comments:20 O2 SAT94% Comments:94 BP Ehouwyzk107fr[Hg] Comments:11 7 BP Uewtgtzbg26rx[Hg] Comments:66 13-Oct-2023 09:20 O2 SAT96% Comments:96 13-Oct-2023 09:15 Pulse80 Comments:80 BP Htybwpex805ea[Hg] Comments:11 8 BP Ilsberojn22kx[Hg] Comments:68 13-Oct-2023 09:10 Respiratory Rate18 Comments:18 13-Oct-2023 09:00 Pulse71 Comments:71 Respiratory Rate20 Comments:20 O2 SAT94% Comments:94 BP Rgpjicqv323no[Hg] Comments:11 7 BP Aqohnsgof34mt[Hg] Comments:67 13-Oct-2023 08:55 Pulse69 Comments:69 Respiratory Rate17 Comments:17 13-Oct-2023 08:50 O2 SAT94% Comments:94 13-Oct-2023 08:45 Pulse71 Comments:71 Respiratory Rate19 Comments:19 BP Fftilebw817ru[Hg] Comments:11 4 BP Wjsvkwsrq61hg[Hg] Comments:66 13-Oct-2023 08:30 O2 SAT94% Comments:94 BP Fcddrrbe815yl[Hg] Comments:11 6 BP Ozflwelxh46xg[Hg] Comments:68 13-Oct-2023 08:15 Pulse77 Comments:77 Respiratory Rate20 Comments:20 BP Xgxbblrb034it[Hg] Comments:11 4 BP Rpmeuqruf14jq[Hg] Comments:68 13-Oct-2023 08:05 O2 SAT95% Comments:95 13-Oct-2023 08:00 Pulse67 Comments:67 BP Rrvvxfnr884rv[Hg] Comments:10 2 BP Xtxkfeeye61zu[Hg] Comments:58 13-Oct-2023 07:55 O2 SAT99% Comments:99 13-Oct-2023 07:50 O2 SAT93% Comments:93 13-Oct-2023 07:45 BP Drjkrjuq909uf[Hg] Comments:11 8 BP Cbwuiamao49ut[Hg] Comments:63 13-Oct-2023 07:40 Pulse71 Comments:71 Respiratory Rate19 Comments:19 13-Oct-2023 07:30 Pulse72 Comments:72 Respiratory Rate20 Comments:20 BP Xyhfpjpa868sm[Hg] Comments:12 6 BP Dxjfwcvfo56km[Hg] Comments:70 13-Oct-2023 07:25 Pulse77 Comments:77 Respiratory Rate20 Comments:20 13-Oct-2023 07:21 BP Lcjlugck070dt[Hg] Comments:12 8 BP Ifxgevafc74ei[Hg] Comments:65 13-Oct-2023 07:20 O2 SAT94% Comments:94 13-Oct-2023 07:05 Xbskomggobi02.1f Comments:97.1 Pulse78 Comments:78 Respiratory Rate14 Comments:14 O2 SAT97% Comments:97 BP Hwgfwltz994ul[Hg] Comments:13 7 BP Kowwpchir00ld[Hg] Comments:86 Height5[ft_us] Comments:5 Mdmwno99.1kg Comments:97.100 13-Oct-2023 07:05 BMI41.8kg/m2 Comments:41.8 Encounters Inpatient encounter Encounter Reason:DIZZINESS, AMS Encounter Diagnosis:Encephalopathy, unspecified,922,OTHER TOXIC ENCEPHALOPATHY,Body mass index (BMI) 40.0-44.9, adult,Major depressive disorder, single episode, unspecified,Dehydration,Anxiety disorder, unspecified,Gastro-esophageal reflux disease without esophagitis,Arthropathic psoriasis, unspecified,Nicotine dependence, unspecified, uncomplicated,ADVERSE EFFECT OF CANNABIS, INITIAL ENCOUNTER,Morbid (severe) obesity due to excess calories,intermediate manager (current) use of non-steroidal anti-inflammatories (NSAID),Acquired absence of other specified parts of digestive tract,Heatstroke and sunstroke, initial encounter 14-Oct-2023 14:[id number] 17:35 Valerie Gabriel MD (Attending) [facility] Discharge Disposition:Discharged to home or self care (routine discharge) MANAGEMENT EQIN-17-Gzg-2024 [facility]LY [facility] [place] [address] [id number]: ENMA DUBON : 74ACCOUNT: [id number] DATE: 10/14/23 AGE: 53ATTENDING PHYSICIAN: Harvey Hussein MD [facility] MANAGEMENT [facility] ----H CM SUPPORT SERVICES ----- ---[facility] Support Services User Yoo:Comments:home Date Entered: 10/14/2023Service Type: *Case ManagementCase Worker: Sneha FontanaPCUWWorklist Date: 10/15/2023Service: Discharge PlanningPayer: [place]ICA[place] PENDING HCAComments:--- 10/14/2023 04:13 PM by Carmela Clarke ---pcp: dr. mosquera: amrita: advanced directive/ living willdme: nonehhc: nonesnf: cresencio lives in a home with spouse micah [phone] and was independent of adls.pt has insurance with [employer]. copy of card placed in pt's chart.dcp is for home via pov ---HC M DISCHARGE PLANNING ----- ---HCM Discharge Planning Comments: ----- ----HCM DISCHARGE PLANNING EVALUATIONPatient Name: JUAN DUBONDANIEL ----- -------Living Status: Spouse-partnerSetting: Home-residenceADL Limits: None or n/aDME: NoneHCM Discharge Planning User Yoo:Community Services Prior to Admission: None or NACurrent Mental Status/Cognition: Alert and OrientedInformation obtained from: PatientDischarge Barriers, select all that apply: None or NAReadmission (unplanned) in the last 30 days: NoPatient goals and preferences after discharge: homeBased on information gathered, is it likely that the patient's care needs canbe met in the environment from which he/she entered the hospital?: YesProposed Discharge Plan, select one: HomeHome Services needed: None or Vipin a caregiver is needed, is there a caregiver available, willing and capableto provide care?: Not NeededCommunity services needed: NoneNew DME required at discharge: None or Vipin new DME is required, is patient able to obtain DME?: Not ApplicableHome Modifications required: None or Vipin home modifications are required, is patient able to obtain them?: NotApplicablePatient concerns about obtaining medications on day of discharge?: NoneTransportation needs at discharge: povDischarge Plan Discussed with: PatientSpouseHave you discussed with the patient how his/her care needs may change overtime?: YesPatient/commercial representative agrees with discharge plan: YesPatient Name: ENMA DUBON expected insurance coverage and/or out of pocket expenses: NotApplicableComments:: pcp: dr. mosquera: amrita: advanced directive/ living willdme: nonehhc: nonesnf: nonept lives in a home with spouse micah [phone] and was independent of adls.pt has insurance with [employer]. copy of card placed in pt's chart.dcp is for home via povDate / Time: 10/14/2023 4:09 PMEvaluated by: Carmela Clarke ===== =======Updated by: Carmela Clarke ([id number]) - 10/15/2023 7:59 AM ==Pat ient Name: ENMA DUBON Plan of Treatment Future Tests Future scheduled test information is unavailable Pending Tests Test Name Ordered Date Scheduled Date ABG BLOOD GAS PH October 13, 2023 6:59am ABG PCO2 October 13, 2023 6:59am ABG GAS PO2 October 13, 2023 6:59am ABG BICARBONATE October 13, 2023 6:59am ABG BASE EXCESS October 13, 2023 6:59am BLOOD PO2/FiO2 Ratio October 13, 2023 6:59am MRSA Surveillance Screen October 14, 2023 7:16am Future Visits Future appointment information is unavailable Referrals to Other Providers Referral information is unavailable Future Procedures Future procedure information is unavailable Future Medications Future medication information is unavailable Patient Instructions Preventing Marijuana Misuse, Adult Hypertension, Adult, Easy-to -Read Form - Blood Pressure Record Sheet Goals Acute Goals Standard for Critical Care Standard for Facility See Health Plan of Care See Health Plan of Care Assessments Diagnosis Onset Date Resolution Status Altered mental status Active Psoriatic arthritis Active Tobacco dependence Active Morbid obesity with BMI of 40.0-44.9, adult Active
--- OUTSIDE RECORDS SUMMARY | 2024-09-30 15:35 | XMS_ITS | Clinical Summary ---
Author Organization [facility] Address [address] [place] [address] Care Team Providers Care Ui Programmer Name Role Phone Ze Whittaker MD Primary Care Provider [phone] Allergies No known active allergies Medications Syringe, Disposable, (Syringe 10-12 ML) 12 ML misc USE 1 NEEDLE SUBCUTANEOUSLY WITH MEXOTREXATE WEEKLY 10/05/19 20 Active omeprazole (PriLOSEC) [address] capsule Take 1 capsule (20 mg) by mouth 2 (two) times a day. 05/04/19 22 Active cetirizine (ZyrTEC) 10 MG tablet Take 10 mg by mouth 1 (one) time each day. Active ibuprofen 400 MG tablet Take 1 tablet (400 mg total) by mouth every 6 (six) hours if needed for moderate pain. 50 tablet 1 11/12/19 Active Additional Information Patient not taking.Reported on 05/27/2023 fluticasone (Flonase) 50 MCG/ACT nasal spray Administer into each nostril 1 (one) time each day. 11/09/19 22 Active albuterol 108 (90 Base) MCG/ACT inhaler INHALE 1 PUFF BY MOUTH EVERY 6 HOURS 10/21/19 23 Active buPROPion XL (Wellbutrin XL) 300 MG 24 hr tablet Take 1 tablet (300 mg) by mouth daily. 10/20/19 23 Active ibuprofen 800 MG tablet Take 1 tablet (800 mg) by mouth every 6 (six) hours if needed. 08/06/19 Active lisinopril 10 MG tablet Take 1 tablet (10 mg) by mouth 1 (one) time each day. 10/21/19 Active fluticasone (Flovent) 110 MCG/ACT inhaler Inhale 1 puff 2 (two) times a day. 05/15/19 Active pravastatin (Pravachol) 20 MG tablet Take 1 tablet (20 mg) by mouth daily. 11/04/19 Active amLODIPine (Norvasc) 5 MG tablet Take 1 tablet (5 mg) by mouth daily. 11/13/19 Active Stelara injectionIndica tions:Psoriatic arthropathy (CMS/HCC) GIVE 1 INJECTION (90 MG) SUBCUTANEOUSLY ONCE EVERY 12 WEEKS. 1 mL 1 06/21/19 Active Active Problems Problem Noted Date Diagnosed Date Therapeutic drug monitoring 11/25/2023 Psoriatic arthropathy 05/27/2023 High risk medication use 05/27/2023 Smoking 05/27/2023 Foot pain, right 08/29/2021 Overview (08/29/2021): Added automatically from request for surgery [id number] Deformity of toe of right foot 08/29/2021 Overview (08/29/2021): Added automatically from request for surgery [id number] Eye pain 09/01/2018 Degenerative arthritis of spine 12/24/2016 Immunizations Immunization Administration Dates Next Due Influenza, injectable, quadrivalent, preservativ e free 02/08/2021 Family History Medical History Relation Name Comments COPD Father Heart attack Father Relation Name Status Comments Father Social History Tobacco Use Types Packs/Day Years Used Date Smoking Tobacco: Every Day Cigarettes 0.5 15 Smokeless Tobacco: Never Tobacco Cessation:Ready to Q uit: Not Asked; Counseling Given: Not Answered Alcohol Use Standard Drinks/Week Comments No 0 (1 standard drink = 0.6 oz pur e alcohol) PHQ-2 Answer Date Recorded Patient Health Questionnaire-2 Score 0 06/20/2024 PHQ-9 Answer Date Recorded Patient Health Questionnaire-9 Score 12 06/20/2024 PHQ-2A Answer Date Recorded Patient Health Questionnaire-2 Score 0 11/24/2022 Sex and Gender Information Value Date Recorded Sex Assigned at Male 11/11/2021 7:43 AM EDT Legal Sex Male 7:48 PM EDT Gender Identity Male 11/11/2021 7:43 AM EDT Sexual Orientation Straight 11/11/2021 7: 43 AM EDT Last Filed Vital Signs Vital Sign Reading Time Taken Comments Blood Pressure 124/79 06/20/2024 9:19 AM EST Pulse 76 06/20/2024 9:19 AM EST Temperature 36.8 C (98.2 F) 11/25/2023 8:38 AM EDT Respiratory Rate 16 05/27/2023 8:22 AM EST Oxygen Saturation 98% 06/20/2024 9:19 AM EST Inhaled Oxygen Concentration - - Weight 106 kg (233 lb 7.5 oz) 06/20/2024 9:19 AM EST Height 175.3 cm (5' 9 ) 06/20/2024 9:19 AM EST Body Mass Index 34.48 06/20/2024 9:19 AM EST Plan of Treatment Upcoming Encounters Date Type Department Care Team (Late st Contact Info) Description 10/18/2024 4:30 PM EDT Office Visit [facility] [address] [place] [address] Gil Brennan MD [address] [place] [address] Health Maintenance Due Date Last Done Comments [facility]-HIV Screening 1972 [facility]-/Child/Adol SDOH Screenings 1972 [facility]- SDOH Screenings 1990 [facility]-Adult SDOH Screenings 1990 [facility]-DTaP,Tdap,and Td Vaccines (1 - Tdap) 08/14/1991 [facility]-Hepatitis B Vaccines (1 of 3 - 19+ 3-dose series) 08/14/1991 [facility]-Pneumococcal Vaccine: 50+ Years (1 of 2 - PCV) 08/14/1991 CT Colonography 2017 Colonoscopy 2017 FIT-DNA 2017 FIT 2017 FOBT 2017 Sigmoidoscopy 2017 [facility]-Colorectal Cancer Screening 2017 [facility]-Zoster Vaccines (1 of 2) 2022 [id number] Vaccine ( season) 2023 03/07/2021, 05/24/2020, 04/23/2020 [facility]-Influenza Vaccine (Season Ended) 2024 02/08/2021 [facility]-Depression Screening 06/20/2025 06/20/2024, 0 06/2024 [facility]-Hepatitis C Screening Completed 05/27/2023, [facility]-Obesity Intervention Completed 025, 11/25/2023, 05/27/2023, Additional history exists HPV Vaccines Aged Out No longer eligi ble based on patient's age to complete this topic [facility]-HIB Vaccines Aged Out No longer e ligible based on patient's age to complete this topic [facility]-Hepatitis A Vaccines Aged Out No longer eligible based on patient's age to complete this topic [facility]-IPV Vaccines Aged Out No longer e ligible based on patient's age to complete this topic [facility]-Rotavirus Vaccines Aged Out No lo nger eligible based on patient's age to complete this topic Procedures Procedure Name Priority Date/Time Associated Diagnosis Comments HEPATITIS C ANTIBODY W/REFLEX TO HCV QUANT PCR Routine 05/27/2023 9:15 AM EST High risk medication use from Last 3 Months or Most Recently Relevant to Health Maintenance Results * Hepatitis C Antibody (05/27/2023 9:15 AM EST) Hepatitis C Antibody Negative Negative 05/27/2023 11:01 AM EST [facility] Blood Venous blood specimen / Unknown Venipuncture / Unknown 05/27/2023 9:15 AM EST 05/27/2023 9:15 AM EST us Gil Brennan MD LAB BLOOD ORDERABLES Final Re sult [facility] [address] [place] [address] from Last 3 Months or Most Recently Relevant to Health Maintenance Care Teams Ui Programmer Relationship Specialty Start Date End Date Ze Whittaker MD [facility] [place] [address] PCP - General 08/29/21
--- NOTE | 2024-09-30 15:47 | XR_ITS ---
FINAL REPORT CLINICAL HISTORY: Right-sided lower back pain and hip pain COMPARISON: None FINDINGS: RIGHT HIP Two views of the right hip demonstrate no acute fracture or dislocation. The joint spaces appear normal. The visualized bony structures are well aligned. No soft tissue abnormality is seen. IMPRESSION: No acute bony abnormality. Reviewed, Interpreted and Dictated by Wei Meza MD Transcribed by Salome Eaton Authenticated and [facility]
--- NOTE | 2024-09-30 15:47 | XR_ITS ---
FINAL REPORT CLINICAL HISTORY: Right-sided lower back pain COMPARISON: None FINDINGS: LUMBAR SPINE WITH BENDING VIEWS: 5 views of the lumbar spine were obtained, along with 3 lateral views in extension and flexion. The vertebrae are normal height. Alignment is within normal limits. The disc spaces are preserved. Multilevel facet sclerosis is noted in the lower lumbar spine. Minimal anterior osteophytes are noted at the T12-L1 and L5-S1 levels. There is minimal spondylolisthesis at the L4-5 level. Prevertebral soft tissues are unremarkable. There is no instability with flexion or extension. IMPRESSION: Multilevel degenerative changes present as noted. Minimal spondylolisthesis at the L4-5 level, with no instability with flexion or extension. Reviewed, Interpreted and Dictated by Wei Meza MD Transcribed by Salome Eaton Authenticated and . [facility]
== END 2024-09-30 23:59 | disposition home or self-care (01) ==
LOC: RAD 15:34
PROVIDERS: PCP Family Medicine; Visit Provider Nurse Practitioner Family
DX: M47.26 Other spondylosis with radiculopathy, lumbar region (principal); M43.16 Spondylolisthesis, lumbar region
CPT/HCPCS: 72114; 73502

== ENCOUNTER 2024-10-13 07:00 | Outpatient (RCR) | payer OTHER, SELFPAY | END 2024-10-13 23:59 | disposition home or self-care (01) | LOC: PT.CARL 07:00 | PROVIDERS: Visit Provider Nurse Practitioner Family | DX: M54.30 Sciatica, unspecified side (principal) | CPT/HCPCS: 97014; 97032; 97110; 97112; 97140; 97161; G0283 ==

== ENCOUNTER 2024-11-09 07:19 | Outpatient (CLI) | payer OTHER, SELFPAY ==
--- OUTSIDE RECORDS SUMMARY | 2024-10-18 16:30 | XMS_ITS | Encounter Summary ---
Author Organization [facility] Address [address] [place] [address] Care Team Providers Care Valve Inserter Name Role Phone Tristen Mccormick MD Primary Care Provider Heather vailable Reason for Visit * Reason Comments Follow-up Psoriatic arthropath y Back Pain Encounter Details Date Type Department Care Team (Late st Contact Info) Description 10/18/2024 4:30 PM EDT [facility] Visit [facility] [address] [place] [address] Gil Brennan MD [address] [place] [address] Psoriatic arthropathy (CMS/HCC) (Primary Dx); Acute pain of left shoulder; High risk medication use; Therapeutic drug monitoring Social History Tobacco Use Types Packs/Day Years Used Date Smoking Tobacco: Every Day Cigarettes 0.5 15 Passive Smoke Exposure: Current Smokeless Tobacco: Never Tobacco Cessation:Ready to Q uit: Not Asked; Counseling Given: Not Answered Alcohol Use Standard Drinks/Week Comments Never 0 (1 standard drink = 0.6 oz pur e alcohol) PHQ-2 Answer Date Recorded Patient Health Questionnaire-2 Score 0 10/18/2024 PHQ-9 Answer Date Recorded Patient Health Questionnaire-9 Score 12 06/20/2024 AUDIT-C Answer Date Recorded Q1: How often do you have a drink containing alcohol? Never 10/18/2024 Q2: How many drinks containi ng alcohol do you have on a typical day when you are drinking? Patient does not drink Q3: How often do you have si x or more drinks on one occasion? Never 10/18/2024 PHQ-2A Answer Date Recorded Patient Health Questionnaire-2 Score 0 11/24/2022 Sex and Gender Information Value Date Recorded Sex Assigned at Male 11/11/2021 7:43 AM EDT Legal Sex Male 7:48 PM EDT Gender Identity Male 11/11/2021 7:43 AM EDT Sexual Orientation Straight 11/11/2021 7: 43 AM EDT documented as of this encounter Last Filed Vital Signs Vital Sign Reading Time Taken Comments Blood Pressure 135/87 10/18/2024 4:04 PM EDT Pulse 76 10/18/2024 4:04 PM EDT Temperature 36.8 C (98.2 F) 10/18/2024 4:04 PM EDT Respiratory Rate 18 10/18/2024 4:04 PM EDT Oxygen Saturation 96% 10/18/2024 4:04 PM EDT Inhaled Oxygen Concentration - - Weight 99.5 kg (219 lb 5.7 oz) 10/18/2024 4:04 P M EDT Height 175.3 cm (5' 9 ) 10/18/2024 4:04 PM EDT Body Mass Index 32.39 10/18/2024 4:04 PM EDT documented in this encounter Functional Status * AUDIT-C Score Answer Date of Assessment Author 0 10/18/2024 4:11 PM EDT Kerline Thomson * Question Answer Date of Assessment Author Q1: How often do you have a drink containing alcohol? Never 10/18/2024 4:11 PM EDT Dorothy Thomson Q2: How many drinks containing alcohol do you have on a typical day when you are drinking? Patient does not drink 10/18/2024 4:11 PM EDT Dorothy Thomson Q3: How often do you have six or more drinks on one occasion? Never 10/18/2024 4:11 PM EDT Dorothy Thomson * Over the past 2 weeks, how often have you been bothered by any of the following problems? Question Answer Date of Assessment Author Little interest or pleasure in doing things Not at all 10/18/2024 4:09 PM EDT Dorothy Thomson Feeling down, depressed, or hopeless Not at all 10/18/2024 4:09 PM EDT Dorothy Thomson Patient Health Questionnaire -2 Score 0 10/18/2024 4:09 PM EDT Dorothy Thomson documented as of this encounter Miscellaneous Notes * Progress Notes - Gil Brennan MD - 10/18/2024 4:30 PM EDT Images from the original note were not included. Rheumatology follow up office visit note Chief Complaint Patient presents with Follow-up Psoriatic arthropathy Back Pain HPI Cheikh Lobato is a 54 y.o. male who is here for a follow up of psoriatic arthritis. Patient is currently on Stelara are, his left shoulder pain has improved, it is now normal without any restriction of range of motion. Patient reports that now he is having pain in his right hip, x-ray hasbeen taken and he has an upcoming MRI ordered by his PCP. Denies any recent infections. Summary of the visit in June 2024: Patient is currently on Stelara, he is doing fine except his left shoulder is painful and has restriction of range of motion. Denies any recent infections or fever. Previously in the previous office visit patient had tenderness and swelling in 1 of his fingers which is completely resolved. Summary of the visit in November 2023: Patient is currently on Stelara and is doing fine. Denies any recent infections. Patient does complain of pain in his left 3rd MCP joint which is almost 8/10, it is constant every day but he is able to function with the patient's actually right-handed and is nothaving any pain in any other joints or any swelling. Summary of the visit in May 2023: Patient presented for follow-up of psoriatic arthritis, he was on Stelara. His last injection was in December 2022, since then he is having issues getting Stelara from the insurance/pharmacy. Our specialilty pharmacy is working very hard with him to get his medication to him. Patient reports having pneumonia 2 months ago but denies any recurrent infection. Patient reports that since he has not able to take his medication because of the pharmacy/insurance issues he is observing return of the skin psoriasis in couple of places including bilateral elbows. He also endorses mild swelling and pain in the left 3rd MCP. Patient was last seen in the clinic in November 2022 by Freda Montesinos. Patient reports using Enbrel for 4-5 years with stopped working later on. Then he was placed on Humira for almost 3 years which also lost efficacy. Currently he is on Stelara since July 2021. Medication HX Enbrel Humira Cosentyx stopped 07/2021 Methotrexate stopped 04/2020 AE Stelara- 07/2021- current History of disease: 1st seen in in 2016 Review of system: 14 point ROS was done, negative other than mentioned in HPI. Objective The following portions of the chart were reviewed this encounter and updated as appropriate: Tobacco Allergies Meds Problems Med Hx Surg Hx Fam Hx Home medications: Current Outpatient Medications Medication Instructions albuterol 108 (90 Base) MCG/ACT inhaler INHALE 1 PUFF BY MOUTH EVERY 6 HOURS amLODIPine (NORVASC) 5 mg, Daily buPROPion XL (WELLBUTRIN XL) 300 mg, Daily cetirizine (ZYRTEC) 10 mg, Daily cyclobenzaprine (Flexeril) 10 MG tablet take 1 tablet by mouth twice daily as needed for muscle spasm fluticasone (Flonase) 50 MCG/ACT nasal spray Daily fluticasone (Flovent) 110 MCG/ACT inhaler 1 puff, 2 times daily ibuprofen 400 mg, Oral, Every 6 hours PRN ibuprofen 800 mg, Every 6 hours PRN lisinopril 10 mg, Daily omeprazole (PRILOSEC) 20 mg, ZZ 2 times daily RT pravastatin (PRAVACHOL) 20 mg, Daily Syringe, Disposable, (Syringe 10-12 ML) 12 ML misc USE 1 NEEDLE SUBCUTANEOUSLY WITH MEXOTREXATE WEEKLY ustekinumab (STELARA) 90 mg, Subcutaneous, Every 3 months Vitals: 12/02/2021 10:22 AM 05/26/2022 2:44 PM 11/24/2022 8:28 AM 05/27/2023 8:22 AM 11/25/2023 8:38 AM 06/20/2024 9:19 AM 10/18/2024 4:04 PM Vitals Systolic 126 144 127 119 121 124 135 Diastolic 84 88 83 74 80 79 87 Heart Rate 86 90 77 77 73 76 76 Temp 36.7 C 36.7 C 36.6 C 36.6 C 36.8 C 36.8 C Resp 16 18 Height (cm) 175.3 cm 175.3 cm 175.3 cm 175.3 cm 175.3 cm 175.3 cm 175.3 cm Weight (kg) 99.791 kg 103.3 kg 96 kg 101 kg 99.9 kg 105.9 kg 99.5 kg BMI 32.49 kg/m2 33.63 kg/m2 31.25 kg/m2 32.88 kg/m2 32.52 kg/m2 34.48 kg/m2 32.39 kg/m2 BSA (m2) 2.2 m2 2.24 m2 2.16 m2 2.22 m2 2.21 m2 2.27 m2 2.2 m2 Visit Report Report Report Report Report Report Report Report Physical Exam HENT: Head: Normocephalic and atraumatic. Nose: Nose normal. Mouth/Throat: Pharynx: Oropharynx is clear. Eyes: General: Right eye: No discharge. Left eye: No discharge. Cardiovascular: Rate and Rhythm: Normal rate. Heart sounds: No friction rub. Pulmonary: Effort: Pulmonary effort is normal. Breath sounds: Normal breath sounds. Abdominal: Palpations: Abdomen is soft. Tenderness: There is no abdominal tenderness. Musculoskeletal: Right shoulder: Normal. Left shoulder: Normal. Right upper arm: Normal. Left upper arm: Normal. Right elbow: Normal. Left elbow: Normal. Right forearm: Normal. Left forearm: Normal. Right wrist: Normal. Left wrist: Normal. Right hand: Normal. Left hand: Normal. Right hip: Tenderness present. Decreased range of motion. Skin: General: Skin is warm and dry. Neurological: Mental Status: He is alert and oriented to person, place, and time. Psychiatric: Mood and Affect: Mood normal. Behavior: Behavior normal. Results: Appointment on 06/20/2024 Component Date Value Glucose, Plasma 06/20/2024 72 (L) BUN, Plasma 06/20/2024 12 Creatinine, Plasma 06/20/2024 1.08 BUN/Creatinine Ratio 06/20/2024 11 Sodium, Plasma 06/20/2024 142 Potassium, Plasma 06/20/2024 4.5 Chloride, Plasma 06/20/2024 104 CO2, Plasma 06/20/2024 28 Anion Gap 06/20/2024 10 Total Calcium, Plasma 06/20/2024 9.3 Total Protein 06/20/2024 7.3 Albumin, Plasma 06/20/2024 4.5 AST, Plasma 06/20/2024 22 ALT, Plasma 06/20/2024 32 Alkaline Phosphatase, Pl* 06/20/2024 96 Total Bilirubin, Plasma 06/20/2024 0.3 eGFRcr 06/20/2024 83.1 WBC Count 06/20/2024 5.84 RBC Count 06/20/2024 5.49 HGB 06/20/2024 16.0 HCT 06/20/2024 48.2 Platelet Count 06/20/2024 250 MCV 06/20/2024 88 MCH 06/20/2024 29.1 MCHC 06/20/2024 33.2 RDW 06/20/2024 12.9 MPV 06/20/2024 10.3 nRBC 06/20/2024 0.0 Differential Type 06/20/2024 Automated Neutrophils % 06/20/2024 42 Lymphocytes % 06/20/2024 46 Monocytes % 06/20/2024 9 Eosinophils % 06/20/2024 2 Basophils % 06/20/2024 1 Immature Granulocytes % 06/20/2024 0 Neutrophils Absolute 06/20/2024 2.47 Lymphocytes Absolute 06/20/2024 2.67 Monocytes Absolute 06/20/2024 0.51 Eosinophils Absolute 06/20/2024 0.13 Basophils Absolute 06/20/2024 0.05 Immature Granulocytes Ab* 06/20/2024 0.01 Currently available Rheumatologic testing values noted below: Lab Results Component Value Date SEDRATE 11 11/25/2023 RF <10 10/17/2015 CRP 3.7 11/25/2023 CCPIGG <5.0 10/17/2015 No results found for: ALDOLASE , JOSE ARMANDO , SCL70 , C3 , C4 , CH50 , HLAB27 , CKTOTAL , CKMM Assessment Assessment/Plan 1. Psoriatic arthropathy (CMS/HCC) Patient has psoriatic arthritis responded well to every treatment tried before except methotrexate. He responded well to Enbrel in the beginning, then it stopped working, then he responded well to Humira which stopped working later on. Currently he is on Stelara since July 2021, is working well. Continue current medication of Stelara. Left shoulder improved. Patient is now having pain in his right hip. X-ray were performed at PCP's office, now he is scheduled to have an MRI. We requested are patient to send report of MRI via [id number] message. Patient verbalized understanding. 2. High risk medication use TB QuantiFERON negative from 2021. Hepatitis-B and C negative from May 2023. 3. Smoking Counseling provided to quit smoking. Patient is currently smoking 1 pack a day. 4. Therapeutic drug monitoring [facility], will check CBC and CMP every 3 months.. Follow up in about 3 months (around 01/18/2025). Counseling: diagnosis, lab results, treatment options, follow up plan, and return instructions Note to patient: The Century Cures Act makes medical notes like these available to patients inthe interest of transparency. However, be advised this is a medical document. It is intended as peer to peer communication. It is written in medical language and may contain abbreviations or verbiagethat are unfamiliar. It may appear blunt or direct. Medical documents are intended to carry relevant information, facts as evident, and the clinical opinion of the medical professional. The patient was counseled about diagnostic results, instruction for management, risk factors reduction, prognosis, compliance with visits and treatment, risks and benefits of treatments options. Prior notes (by external physicians) and results were reviewed by me with independent interpretation of labs and imaging. My note will be sent to PCP and other consulting physicians. Information regarding activities, treatments, and follow-up recommendations were provided to the patient/family member(s) present today who have shown recognition and demonstration of understanding of this information. Thank you for the consult and allowing us to participate in the care of this patient. Gil Brennan MD Director Of Education Division of Rheumatology Department of Internal Medicine [facility] documented in this encounter Plan of Treatment Upcoming Encounters Date Type Department Care Team (Late st Contact Info) Description 01/23/2025 9:00 AM EDT Office Visit [facility] Medicine Specialties [address] [place] [address] Gil Brennan MD [address] [place] [address] documented as of this encounter Results * C-reactive protein (10/18/2024 5:00 PM EDT) CRP, Plasma <3.0 <=8.0 mg/L 10/18/2024 6:46 PM EDT [facility] Blood Venous blood specimen / Unknown Venipuncture / Unknown 10/18/2024 5:00 PM EDT 10/18/2024 5:00 PM EDT Narrative [facility] - 10/18/2024 6:46 PM EDT This CRP test is appropriate for assessment of infection, systemic inflammation and/or tissue injury. To assess cardiovascular disease risk order high sensitivity CRP (CRPH). Gil Brennan MD LAB BLOOD ORDERABLES Final Re sult Performing Organization Address [facility]/ZIP Co de Phone Number [facility] [address] [place] [address] * Sedimentation Rate, Automated (10/18/2024 5:00 PM EDT) [facility] Sedimentation Rate 9 <20 mm/hr 2024 6:48 PM EDT [facility] Blood Venous blood specimen / Unknown Venipuncture / Unknown 10/18/2024 5:00 PM EDT 10/18/2024 5:00 PM EDT Gil Brennan MD LAB BLOOD ORDERABLES Final Re sult [facility] [address] [place] [address] * Comprehensive metabolic panel (10/18/2024 5:00 PM EDT) [facility] Glucose, Plasma 81 74 - 99 mg/dL 10/18/2024 6:46 PM EDT [facility] BUN, Plasma 14 7 - 21 mg/dL 10/18/2024 6:46 PM EDT [facility] Creatinine, Plasma 1.01 0.70 - 1.20 mg/dL 10/18/2024 6:46 PM EDT [facility] BUN/Creatinine Ratio 14 10/18/2024 6:46 PM EDT [facility] Sodium, Plasma 142 136 - 145 mmol/L 10/18/2024 6:46 PM EDT [facility] Potassium, Plasma 3.6 3.6 - 4.9 mmol/L 10/18/2024 6:46 PM EDT [facility] Chloride, Plasma 105 97 - 107 mmol/L 10/18/2024 6:46 PM EDT [facility] CO2, Plasma 25 22 - 29 mmol/L 10/18/2024 6:46 PM EDT [facility] Anion Gap 12 6 - 16 mmol/L 10/18/2024 6:46 PM EDT [facility] Total Calcium, Plasma 9.2 8.9 - 10.2 mg/dL 10/18/2024 6:46 PM EDT [facility] Total Protein 6.8 6.3 - 7.9 g/dL 10/18/2024 6:46 PM EDT [facility] Albumin, Plasma 4.3 3.5 - 5.2 g/dL 10/18/2024 6:46 PM EDT [facility] AST, Plasma 16 10 - 50 U/L 10/18/2024 6:46 PM EDT [facility] ALT, Plasma 21 10 - 50 U/L 10/18/2024 6:46 PM EDT [facility] Alkaline Phosphatase, Plasma 78 40 - 115 U/L 10/18/2024 6:46 PM EDT [facility] Total Bilirubin, Plasma 0.3 0.2 - 1.1 mg/dL 10/18/2024 6:46 PM EDT [facility] eGFRcr 89.5 mL/min/1.7 3m*2 10/18/2024 6:46 PM EDT [facility] Comment:Reported eGFRcr in m L/min/1.73m2 is based the CKD-EPI 2020 equation that does not use a race coefficient. Blood Venous blood specimen / Unknown Venipuncture / Unknown 10/18/2024 5:00 PM EDT 10/18/2024 5:00 PM EDT us Gil Brennan MD LAB BLOOD ORDERABLES Final Re sult [facility] [address] [place] [address] * CBC and differential (10/18/2024 5:00 PM EDT) WBC Count 9.47 3.70 - 10.30 10*3/uL LAB HEMATOLOGY METHOD 10/18/2024 6:38 PM EDT [facility] RBC Count 5.08 4.60 - 6.10 10*6/uL LAB HEMATOLOGY METHOD 10/18/2024 6:38 PM EDT [facility] HGB 15.1 13.7 - 17.5 g/dL LAB HEMATOLOGY METHOD 10/18/2024 6:38 PM EDT [facility] HCT 44.3 40.0 - 51.0 % LAB HEMATOLOGY METHOD 10/18/2024 6:38 PM EDT [facility] Platelet Count 274 155 - 369 10*3/uL LAB HEMATOLOGY METHOD 10/18/2024 6:38 PM EDT [facility] MCV 87 79 - 98 fL LAB HEMATOLOGY METHOD 10/18/2024 6:38 PM EDT [facility] MCH 29.7 26.0 - 32.0 pg LAB HEMATOLOGY METHOD 10/18/2024 6:38 PM EDT [facility] MCHC 34.1 30.7 - 35.5 g/dL LAB HEMATOLOGY METHOD 10/18/2024 6:38 PM EDT [facility] RDW 13.2 11.5 - 14.5 % LAB HEMATOLOGY METHOD 10/18/2024 6:38 PM EDT [facility] MPV 10.3 8.8 - 12.5 fL LAB HEMATOLOGY METHOD 10/18/2024 6:38 PM EDT [facility] nRBC 0.0 <=0.0 per 100 WBCs LAB HEMATOLOGY METHOD 10/18/2024 6:38 PM EDT [facility] Differential Type Automated LAB HEMATOLOGY METHOD 10/18/2024 6:38 PM EDT [facility] Neutrophils % 52 % LAB HEMATOLOGY METHOD 10/18/2024 6:38 PM EDT [facility] Lymphocytes % 38 % LAB HEMATOLOGY METHOD 10/18/2024 6:38 PM EDT [facility] Monocytes % 8 % LAB HEMATOLOGY METHOD 10/18/2024 6:38 PM EDT [facility] Eosinophils % 1 % LAB HEMATOLOGY METHOD 10/18/2024 6:38 PM EDT [facility] Basophils % 1 % LAB HEMATOLOGY METHOD 10/18/2024 6:38 PM EDT [facility] Immature Granulocytes % 0 % LAB HEMATOLOGY METHOD 10/18/2024 6:38 PM EDT [facility] Neutrophils Absolute 4.85 1.60 - 6.10 10*3/uL LAB HEMATOLOGY METHOD 10/18/2024 6:38 PM EDT [facility] Lymphocytes Absolute 3.62 1.20 - 3.90 10*3/uL LAB HEMATOLOGY METHOD 10/18/2024 6:38 PM EDT [facility] Monocytes Absolute 0.79 0.30 - 0.90 10*3/uL LAB HEMATOLOGY METHOD 10/18/2024 6:38 PM EDT [facility] Eosinophils Absolute 0.11 0.00 - 0.50 10*3/uL LAB HEMATOLOGY METHOD 10/18/2024 6:38 PM EDT [facility] Basophils Absolute 0.06 0.00 - 0.10 10*3/uL LAB HEMATOLOGY METHOD 10/18/2024 6:38 PM EDT [facility] Immature Granulocytes Absolute 0.04 0.00 - 0.06 10*3/uL LAB HEMATOLOGY METHOD 10/18/2024 6:38 PM EDT [facility] Blood Venous blood specimen / Unknown Venipuncture / Unknown 10/18/2024 5:00 PM EDT 10/18/2024 5:00 PM EDT Narrative [facility] - 10/18/2024 6:38 PM EDT Therapeutic decision making should be based on absolute values, rather than percentages. us Gil Brennan MD LAB BLOOD ORDERABLES Final Re sult [facility] [address] [place] [address] documented in this encounter Visit Diagnoses Diagnosis Psoriatic arthropathy (CMS/HCC)- Primary Psoriatic arthropathy Acute pain of left shoulder High risk medication use Therapeutic drug monitoring Encounter for therapeutic drug monitoring documented in this encounter Additional Health Concerns Assessment Noted Time PHQ-9 Depression Total Score: 12 06/20/ 025 9:22 AM EST A fall risk assessment has been complete d for the patient 10/18/2024 4:09 PM EDT A Body Mass Index follow-up plan has been documented for the patient 10/18/2024 4:49 PM EDT documented as of this encounter Care Teams Valve Inserter Relationship Specialty Start Date End Date Tristen Mccormick MD PCP - General Family Medicine 10/18/24 documented as of this encounter
--- OUTSIDE RECORDS SUMMARY | 2024-11-09 07:20 | XMS_ITS | Continuity of Care Document ---
Author Organization [facility]. If a dditional information is needed, contact Health Information Management at [phone] Address [address] [place] [address] Phone Care Team Providers Care Air Hammer Operator Name Role Phone Unavailable Unavailable Unavailable Unavailable Unavailable Unavailable Unavailable Unavailable Unavailable Unavailable Unavailable Unavailable Unavailable Unavailable Unavailable Problems Morbid obesity Onset:13-Oct-2023 Idania BRYSON Tobacco dependence syndrome Onset:13-Oct-2023 Idania BRYSON Psoriatic arthritis Onset:13-Oct-2023 Idania BRYSON Altered mental status Onset:13-Oct-2023 Nasreen Shearer MD Mental Status Cognitive function finding 13-Oct-2023 Allergies and Adverse Reactions No Known Allergies(Allergy) Onset: 13-Oct-2023 Medications pantoprazole 40 MG Delayed Release Oral Tablet [Protonix];40 MILLIGRAM QAM Quantity:1 Idania BRYSON Start:14-Oct-2023 Status:Discontinued Comments:[id number] Administration Instructions:AUTO SUB PER PT FOR: PRILOSEC 20 MG loratadine 10 MG Oral Tablet;10 MILLIGRAM QAM Quantity:1 Anupama Huang MD Start:14-Oct-2023 Status:Discontinued Comments:[id number] meloxicam 15 MG Oral Tablet [Mobic];15 MILLIGRAM QAM Quantity:2 Idania BRYSON Start:14-Oct-2023 Status:Discontinued Comments:[id number] Administration Instructions:GIVE WITH FOOD loratadine 10 MG Oral Tablet;10 MILLIGRAM DAILY Quantity:1 Idania BRYSON Start:14-Oct-2023 Status:Discontinued Comments:[id number] amLODIPine 5 MG Oral Tablet;5 MILLIGRAM PO DAILY Start:14-Oct-2023 Comments:5 MG PO DAILY 24 HR nicotine 0.875 MG/HR Transdermal System [Nicoderm C-Q];21 MILLIGRAM BEDTIME Quantity:1 Idania BRYSON Start:13-Oct-2023 Status:Discontinued Comments:[id number] Administration Instructions:Please ensure old patch is removed before applying new PATCH REMOVAL REMINDER_PATREMOVE;1 EACH BEDTIME Quantity:1 Idania BRYSON Start:13-Oct-2023 Status:Discontinued Comments:[id number] Administration Instructions:REMOVE NICOTINE PATCH DIRECTED acetaminophen 325 MG Oral Tablet [Tactinal];650 MILLIGRAM Q4H PRN Quantity:2 Idania BRYSON Start:13-Oct-2023 Status:Discontinued Comments:[id number] ondansetron 2 MG/ML Injectable Solution [Zofran];4 MILLIGRAM Q4H PRN Quantity:1 Idania BRYSON Start:13-Oct-2023 Status:Discontinued Comments:[id number] calcium carbonate 500 MG Chewable Tablet;1000 MILLIGRAM Q6H PRN Quantity:2 Idania BRYSON Start:13-Oct-2023 Status:Discontinued Comments:[id number] Administration Instructions:GIVE WITH FOOD 1 ML Sodium Chloride 9 MG/ML Prefilled Syringe;[id number] Administration Instructions:FILL IN DOSE WITH THEAPPROPRIATE AMOUNT TO FLUSH:ADULT: FLUSH WITH 10 ml AFTER MEDS AND LABS.MIDLINE: FLUSH WITH 20 ml.PEDIATRIAC: FLUSH WITH 3 ml. Quantity:0 Idania BRYSON Start:13-Oct-2023 Status:Discontinued Comments:[id number] Administration Instructions:FILL IN DOSE WITH THEAPPROPRIATE AMOUNT TO FLUSH:ADULT: FLUSH WITH 10 ml AFTER MEDS AND LABS.MIDLINE: FLUSH WITH 20 ml.PEDIATRIAC: FLUSH WITH 3 ml. PT REFRIGERATOR MED_PTFRIDGE;1 EACH PRN Quantity:1 Idania BRYSON Start:13-Oct-2023 Status:Discontinued Comments:[id number] Administration Instructions:ENTRY ALLOWS ACCESS TO PATIENT MEDICATIONS IN THE FRIDGE- loratadine 10 MG Oral Capsule [Claritin];10 MILLIGRAM PO DAILY Start:13-Oct-2023 Comments:10 MG PO DAILY meloxicam 15 MG Oral Tablet;15 MILLIGRAM PO DAILY Start:13-Oct-2023 Status:Discontinued Comments:15 MG PO DAILY omeprazole 20 MG Delayed Release Oral Capsule;20 MILLIGRAM PO C BK Start:13-Oct-2023 Comments:20 MG PO C BK 24 HR buPROPion hydrochloride 300 MG Extended Release Oral Tablet;300 MG PO Start:13-Oct-2023 Comments:300 MG PO Social History Smoking Status Smokes tobacco daily Recorded: 13-Oct-2023
--- OUTSIDE RECORDS SUMMARY | 2024-11-09 07:21 | XMS_ITS ---
Author Organization Unknown Medications Medication Instructions Effective Dates (start - stop) Status amoxicillin 875 MG / clavula dorian 125 MG Oral Tablet [id number]:00:00.000+00: 00 - Completed brompheniramine maleate 0.4 MG/ML / dextromethorphan hydrobromide 2 MG/ML / pseudoephedrine hydrochloride 6 MG/ML Oral Solution [id number]:00:0 0.000+00: 00 - Completed doxycycline hyclate 100 MG O ral Capsule [id number]:00:00.000+00: 00 - Completed [id number] 200 ACTUAT albuter ol 0.09 MG/ACTUAT Metered Dose Inhaler [id number]:00:00.000 +00: 00 - Completed [id number] 200 ACTUAT albuter ol 0.09 MG/ACTUAT Metered Dose Inhaler [id number]:00:00.000 +00: 00 - Completed ibuprofen 800 MG Oral Tablet 06-21-17:00:00.000+00: 00 - Completed lisinopril 10 MG Oral Tablet 06-24-02:00:00.000+00: 00 - Completed lisinopril 10 MG Oral Tablet 06-20-13:00:00.000+00: 00 - Completed 24 HR bupropion hydrochlorid e 300 MG Extended Release Oral Tablet [id number]:00:00.00 0+00: 00 - Completed ibuprofen 400 MG Oral Tablet 05-27-24:00:00.000+00: 00 - Completed cephalexin 500 MG Oral Capsule 2 [id number]:00:00.000+00: 00 - Completed 1 ML ustekinumab 90 MG/ML Pr efilled Syringe [Stelara] [id number]:00:00.000+00: 00 - Completed 1 ML ustekinumab 90 MG/ML Pr efilled Syringe [Stelara] [id number]:00:00.000+00: 00 - Completed 1 ML ustekinumab 90 MG/ML Pr efilled Syringe [Stelara] [id number]:00:00.000+00: 00 - Completed 1 ML ustekinumab 90 MG/ML Pr efilled Syringe [Stelara] [id number]:00:00.000+00: 00 - Completed 1 ML ustekinumab 90 MG/ML Pr efilled Syringe [Stelara] [id number]:00:00.000+00: 00 - Completed oxycodone hydrochloride 5 MG Oral Tablet [id number]:00:00.000+00: 00 - Completed montelukast 10 MG Oral Tablet 08-11-25T:00:00.000+00: 00 - Completed 24 HR bupropion hydrochlorid e 300 MG Extended Release Oral Tablet [id number]:00:00.00 0+00: 00 - Completed oxycodone hydrochloride 5 MG Oral Tablet [id number]:00:00.000+00: 00 - Completed Patient Care team information Name Category Status Period Participants - - Proposed period not known -
--- OUTSIDE RECORDS SUMMARY | 2024-11-09 07:21 | XMS_ITS | Clinical Summary ---
Author Organization [facility] Address [address] [place] [address] Care Team Providers Care Cultural Historian Name Role Phone Tristen Mccormick MD Primary Care Provider Heather vailable Allergies No known active allergies Medications Syringe, [...] every 6 (six) hours if needed. 08/06/19 23 Active lisinopril 10 MG tablet Take 1 tablet (10 mg) by mouth 1 (one) time each day. 10/21/19 23 Active fluticasone (Flovent) 110 MCG/ACT inhaler Inhale 1 puff 2 (two) times a day. 05/15/19 24 Active pravastatin (Pravachol) 20 MG tablet Take 1 tablet (20 mg) by mouth daily. 11/04/19 24 Active amLODIPine (Norvasc) 5 MG tablet Take 1 tablet (5 mg) by mouth daily. 11/13/19 24 Active cyclobenzaprine (Flexeril) 10 MG tablet take 1 tablet by mouth twice daily as needed for muscle spasm 09/27/19 25 Active ustekinumab (Stelara) syringeIndicati ons:Psoriatic arthropathy (CMS/HCC) Inject 1 mL under the skin every 3 months. 1 mL 1 10/19/19 25 Active Stelara injectionIndica tions:Psoriatic arthropathy (CMS/HCC) GIVE 1 INJECTION (90 MG) SUBCUTANEOUSLY ONCE EVERY 12 WEEKS. 1 mL 1 06/21/19 25 025 Discontin ued(Reord er) Active Problems Problem Noted Date Diagnosed Date Therapeutic drug monitoring 11/25/2023 Psoriatic arthropathy 05/27/2023 High risk medication use 05/27/2023 Smoking 05/27/2023 Foot pain, right 08/29/2021 Overview (08/29/2021): Added automatically from request for surgery [id number] Deformity of toe of right foot 08/29/2021 Overview (08/29/2021): Added automatically from request for surgery [id number] Eye pain 09/01/2018 Degenerative arthritis of spine 12/24/2016 Encounters Date Type Department Care Team Description 10/18/2024 4:30 PM EDT Office Visit [facility] Medicine Specialties [address] [place] [address], [address] [place] [phone] Gil Brennan MD Psoriatic arthropathy (CMS/HCC) (Primary Dx); Acute pain of left shoulder; High risk medication use; Therapeutic drug monitoring 10/18/2024 Orders Only [facility] Medicine Specialties [facility] [address], [address] [place] [address], [place] [phone] Rom Cloud, PharmD Psoriatic arthropathy ([facility]) (Primary Dx) 10/18/2024 Travel from Last 3 Months Immunizations Immunization Administration Dates Next Due Influenza, injectable, quadrivalent, preservativ e free 02/08/2021 Family History Medical History Relation Name Comments COPD Father Heart attack Father Psoriasis Maternal Grandfather Psoriasis Mother Psoriatic arthritis Mother Relation Name Status Comments Father Maternal Grandfather Mother Alive Social History Tobacco Use Types Packs/Day Years [...] Mass Index 32.39 10/18/2024 4:04 PM EDT Plan of Treatment Upcoming Encounters Date Type Department Care Team (Late st Contact Info) Description 01/23/2025 9:00 AM EDT Office Visit [facility] Medicine Specialties [address] [place] [address] Gil Brennan MD [address] [place] [address] Health Maintenance Due Date Last [...] 2017 [facility]-Zoster Vaccines (1 of 2) 2022 [id number] Vaccine ( - season) 2023 03/07/2021, 05/24/2020, 04/23/2020 [facility]-Influenza Vaccine (#1) 2024 02/08/2021 [facility]-Depression Screening 10/18/2025 10/18/2024, 0306/2024 [facility]-Hepatitis C Screening Completed 05/27/2023, [facility]-Obesity Intervention Completed 025, 06/20/2024, 11/25/2023, Additional history exists HPV Vaccines Aged Out [...] Procedure Name Priority Date/Time Associated Diagnosis Comments CBC WITH AUTO DIFFERENTIAL Routine 10/18/2024 5:00 PM EDT Therapeutic drug monitoring COMPREHENSIVE METABOLIC PANEL, PLASMA Routine 10/18/2024 5:00 PM EDT Therapeutic drug monitoring SEDIMENTATION RATE, AUTOMATED Routine 10/18/2024 5:00 PM EDT High risk medication use C-REACTIVE PROTEIN, PLASMA Routine 10/18/2024 5:00 PM EDT High risk medication use HEPATITIS C ANTIBODY W/REFLEX TO HCV QUANT PCR Routine 05/27/2023 9:15 AM EST High risk medication use from Last 3 Months or Most Recently Relevant to Health Maintenance Results * Sedimentation Rate, Automated (10/18/2024 5:00 PM EDT) Sedimentation Rate 9 <20 mm/hr 2024 6:48 PM EDT [facility] Blood Venous blood specimen / Unknown Venipuncture / Unknown 10/18/2024 5:00 PM EDT 10/18/2024 5:00 PM EDT us Gil Brennan MD LAB BLOOD ORDERABLES Final Re sult [facility] [address] [place] [address] * CBC and differential (10/18/2024 5:00 PM EDT) WBC Count 9.47 3.70 - 10.30 10*3/uL LAB HEMATOLOGY METHOD 10/18/2024 6:38 PM EDT [facility] RBC Count 5.08 4.60 - 6.10 10*6/uL LAB HEMATOLOGY METHOD 10/18/2024 6:38 PM EDT [facility] HGB 15.1 13.7 - 17.5 g/dL LAB HEMATOLOGY METHOD 10/18/2024 6:38 PM EDT [facility] HCT 44.3 40.0 - 51.0 % LAB HEMATOLOGY METHOD 10/18/2024 6:38 PM EDT [facility] Platelet Count 274 155 - 369 10*3/uL LAB HEMATOLOGY METHOD 10/18/2024 6:38 PM EDT [facility] MCV 87 79 - 98 fL LAB HEMATOLOGY METHOD 10/18/2024 6:38 PM EDT [facility] MCH 29.7 26.0 - 32.0 pg LAB HEMATOLOGY METHOD 10/18/2024 6:38 PM EDT [facility] MCHC 34.1 30.7 - 35.5 g/dL LAB HEMATOLOGY METHOD 10/18/2024 6:38 PM EDT [facility] RDW 13.2 11.5 - 14.5 % LAB HEMATOLOGY METHOD 10/18/2024 6:38 PM EDT [facility] MPV 10.3 8.8 - 12.5 fL LAB HEMATOLOGY METHOD 10/18/2024 6:38 PM EDT [facility] nRBC 0.0 <=0.0 per 100 WBCs LAB HEMATOLOGY METHOD 10/18/2024 6:38 PM EDT [facility] Differential Type Automated LAB HEMATOLOGY METHOD 10/18/2024 6:38 PM EDT [facility] Neutrophils % 52 % LAB HEMATOLOGY METHOD 10/18/2024 6:38 PM EDT [facility] Lymphocytes % 38 % LAB HEMATOLOGY METHOD 10/18/2024 6:38 PM EDT [facility] Monocytes % 8 % LAB HEMATOLOGY METHOD 10/18/2024 6:38 PM EDT [facility] Eosinophils % 1 % LAB HEMATOLOGY METHOD 10/18/2024 6:38 PM EDT [facility] Basophils % 1 % LAB HEMATOLOGY METHOD 10/18/2024 6:38 PM EDT [facility] Immature Granulocytes % 0 % LAB HEMATOLOGY METHOD 10/18/2024 6:38 PM EDT [facility] Neutrophils Absolute 4.85 1.60 - 6.10 10*3/uL LAB HEMATOLOGY METHOD 10/18/2024 6:38 PM EDT [facility] Lymphocytes Absolute 3.62 1.20 - 3.90 10*3/uL LAB HEMATOLOGY METHOD 10/18/2024 6:38 PM EDT [facility] Monocytes Absolute 0.79 0.30 - 0.90 10*3/uL LAB HEMATOLOGY METHOD 10/18/2024 6:38 PM EDT [facility] Eosinophils Absolute 0.11 0.00 - 0.50 10*3/uL LAB HEMATOLOGY METHOD 10/18/2024 6:38 PM EDT [facility] Basophils Absolute 0.06 0.00 - 0.10 10*3/uL LAB HEMATOLOGY METHOD 10/18/2024 6:38 PM EDT [facility] Immature Granulocytes Absolute 0.04 0.00 - 0.06 10*3/uL LAB HEMATOLOGY METHOD 10/18/2024 6:38 PM EDT [facility] Blood Venous blood specimen / Unknown Venipuncture / Unknown 10/18/2024 5:00 PM EDT 10/18/2024 5:00 PM EDT Narrative [facility] - 10/18/2024 6:38 PM EDT Therapeutic decision making should be based on absolute values, rather than percentages. us Gil Brennan MD LAB BLOOD ORDERABLES Final Re sult [facility] [address] [place] [address] * C-reactive protein (10/18/2024 5:00 PM EDT) CRP, Plasma <3.0 <=8.0 mg/L 10/18/2024 6:46 PM EDT [facility] Blood Venous blood specimen / Unknown Venipuncture / Unknown 10/18/2024 5:00 PM EDT 10/18/2024 5:00 PM EDT Narrative [facility] - 10/18/2024 6:46 PM EDT This CRP test is appropriate for assessment of infection, systemic inflammation and/or tissue injury. To assess cardiovascular disease risk order high sensitivity CRP (CRPH). Gil Brennan MD LAB BLOOD ORDERABLES Final Re sult [facility] [address] [place] [address] * Comprehensive metabolic panel (10/18/2024 5:00 PM EDT) Glucose, Plasma 81 74 - 99 mg/dL 10/18/2024 6:46 PM EDT [facility] BUN, Plasma 14 7 - 21 mg/dL 10/18/2024 6:46 PM EDT [facility] Creatinine, Plasma 1.01 0.70 - 1.20 mg/dL 10/18/2024 6:46 PM EDT [facility] BUN/Creatinine Ratio 14 10/18/2024 6:46 PM EDT [facility] Sodium, Plasma 142 136 - 145 mmol/L 10/18/2024 6:46 PM EDT [facility] Potassium, Plasma 3.6 3.6 - 4.9 mmol/L 10/18/2024 6:46 PM EDT [facility] Chloride, Plasma 105 97 - 107 mmol/L 10/18/2024 6:46 PM EDT [facility] CO2, Plasma 25 22 - 29 mmol/L 10/18/2024 6:46 PM EDT [facility] Anion Gap 12 6 - 16 mmol/L 10/18/2024 6:46 PM EDT [facility] Total Calcium, Plasma 9.2 8.9 - 10.2 mg/dL 10/18/2024 6:46 PM EDT [facility] Total Protein 6.8 6.3 - 7.9 g/dL 10/18/2024 6:46 PM EDT [facility] Albumin, Plasma 4.3 3.5 - 5.2 g/dL 10/18/2024 6:46 PM EDT [facility] AST, Plasma 16 10 - 50 U/L 10/18/2024 6:46 PM EDT [facility] ALT, Plasma 21 10 - 50 U/L 10/18/2024 6:46 PM EDT [facility] Alkaline Phosphatase, Plasma 78 40 - 115 U/L 10/18/2024 6:46 PM EDT [facility] Total Bilirubin, Plasma 0.3 0.2 - 1.1 mg/dL 10/18/2024 6:46 PM EDT [facility] eGFRcr 89.5 mL/min/1.7 3m*2 10/18/2024 6:46 PM EDT [facility] Comment:Reported eGFRcr in m L/min/1.73m2 is based the CKD-EPI 2020 equation that does not use a race coefficient. Blood Venous blood specimen / Unknown Venipuncture / Unknown 10/18/2024 5:00 PM EDT 10/18/2024 5:00 PM EDT Gil Brennan MD LAB BLOOD ORDERABLES Final Re sult Performing Organization Address City/[facility]/ZIP Co de Phone Number [facility] [address] [place] [address] * Hepatitis C Antibody (05/27/2023 9:15 AM EST) Hepatitis C Antibody Negative Negative 05/27/2023 11:01 AM EST [facility] Blood Venous blood specimen / Unknown Venipuncture / Unknown 05/27/2023 9:15 AM EST 05/27/2023 9:15 AM EST Gil Brennan MD LAB BLOOD ORDERABLES Final Re sult [facility] [address] [place] [address] from Last 3 Months or Most Recently Relevant to Health Maintenance Insurance ANTH Care Teams Cultural Historian Relationship Specialty Start Date End Date Tristen Mccormick MD PCP - General Family Medicine 10/18/24
--- OUTSIDE RECORDS SUMMARY | 2024-11-09 07:21 | XMS_ITS | Encounter Summary ---
Author Organization [facility] Address [address] [place] [address] Care Team Providers Care Activity Therapist Name Role Phone Tristen Mccormick MD Primary Care Provider Heather vailable Encounter Details Date Type Department Care Team (Latest Contact Info) Description 10/18/2024 Travel Social History Tobacco Use Types Packs/Day Years Used Date Smoking Tobacco: Every Day Cigarettes 0.5 15 Passive Smoke Exposure: Current Smokeless Tobacco: Never Alcohol Use Standard Drinks/Week Comments Never 0 [...] AM EDT documented as of this encounter Functional Status * AUDIT-C Score [...] Dorothy Thomson documented as of this encounter Plan of Treatment Upcoming Encounters Date Type Department Care Team (Late st Contact Info) Description 01/23/2025 9:00 AM EDT Office Visit [facility] Medicine Specialties [address] [place] [address] Gil Brennan MD [address] [place] [address] documented as of this encounter Visit Diagnoses Not on filedocumented in this encounter Additional Health Concerns Assessment Noted Time PHQ-9 Depression Total Score: 12 025 9:22 AM EST A fall risk assessment has been complete d for the patient 10/18/2024 4:09 PM EDT A Body Mass Index follow-up plan has been documented for the patient 10/18/2024 4:49 PM EDT documented as of this encounter Care Teams Activity Therapist Relationship Specialty Start Date End Date Tristen Mccormick MD PCP - General Family Medicine 10/18/24 documented as of this encounter
--- OUTSIDE RECORDS SUMMARY | 2024-11-09 07:21 | XMS_ITS | Encounter Summary ---
Author Organization [facility] Address [address] [place] [address] Care Team Providers Care Collection Technician Name Role Phone Tristen Mccormick MD Primary Care Provider Heather vailable Encounter Details Date Type Department Care Team (Late st Contact Info) Description 10/18/[address] [facility] Medicine Specialties [address] [place] [address] Rom Cloud, [place] [address] Psoriatic arthropathy (CMS/HCC) (Primary Dx) Social History Tobacco Use Types Packs/Day Years [...] does not drink 10/18/2024 4:11 PM EDT Dorohty Thomson Q3: How often do you have [...] encounter Miscellaneous Notes * Progress Notes - Rom Cloud PharmD - 10/18/2024 4:45 PM EDT 1 medication(s) has been approved per protocol. documented in this encounter Plan of Treatment Upcoming Encounters Date Type Department Care Team (Late st Contact Info) Description 01/23/2025 9:00 AM EDT Office Visit [facility] Medicine Specialties [address] [place] [phone] Gil Brennan MD [address] [place] [phone] documented as of this encounter Visit Diagnoses Diagnosis Psoriatic arthropathy (CMS/HCC)- Primary Psoriatic arthropathy documented in this encounter Additional Health Concerns Assessment Noted Time PHQ-9 Depression Total Score: 12 06/20/ 025 9:22 AM EST A fall risk assessment has been complete d for the patient 10/18/2024 4:09 PM EDT A Body Mass Index follow-up plan has been documented for the patient 10/18/2024 4:49 PM EDT documented as of this encounter Care Teams Collection Technician Relationship Specialty Start Date End Date Tristen Mccormick MD PCP - General Family Medicine 10/18/24 documented as of this encounter
--- OUTSIDE RECORDS SUMMARY | 2024-11-09 07:21 | XMS_ITS | Clinical Summary ---
Author Organization [facility] Address [address] [place] [address] Care Team Providers Care Painter Decorator Name Role Phone Tristen Mccormick MD Primary Care Provider [phone] Allergies No known active allergies Medications amLODIPine (NORVASC) 5 MG tablet Take 1 tablet by mouth Daily. 4 Active pravastatin (PRAVACHOL) 20 MG tablet Take 1 tablet by mouth Daily. 4 Active buPROPion XL (WELLBUTRIN XL) 300 MG 24 hr tablet Take 1 tablet by mouth Daily. 4 Active Stelara 90 MG/ML solution prefilled syringe Injection Inject 90 mg under the skin into the appropriate area as directed Every 3 (Three) Months. 4 Active fluticasone (FLONASE) 50 MCG/ACT nasal spray Administer 2 sprays into the nostril(s) as directed by provider Daily. Active Active Problems Problem Noted Date Diagnosed Date CAD, multiple vessel 12/03/2023 Assessment & Plan (04/01/2024 8:51 AM EST): Coronary artery disease is stable. Continue current treatment regimen. Cardiac status will be reassessed in 6 months. Patient reports that his PCP has increased his pravastatin to 40 mg daily. Smoking cessation advised. Assessment & Plan (12/03/2023 12:26 PM EDT): History of mild CAD on heart cath 2016. Patient to continue pravastatin. Smoking cessation strongly advised. HAAS (dyspnea on exertion) 12/03/2023 Assessment & Plan (02/03/2024 5:21 PM EDT): Low risk stress test. Assessment & Plan (12/03/2023 12:25 PM EDT): Patient reports worsening dyspnea on exertion associated with left-sided chest pain radiating into the left side of his neck, and racing heart. Plan an echo to evaluate structural or any valvular abnormalities. Chest pain, atypical 12/03/2023 Assessment & Plan (12/03/2023 12:25 PM EDT): Patient reports left-sided chest pain radiating into the left side of his neck associated with exertional shortness of breath, and rapid heart rate. Plan stress echo to evaluate for ischemia. Dizziness 12/03/2023 Assessment & Plan (12/03/2023 12:25 PM EDT): He reports some occasional dizziness. Recent episode where he passed out and could not be revived. Patient ended up in the hospital at [facility] and was evaluated for stroke. Patient discharged with a diagnosis of severe dehydration. Plan bilateral carotid duplex to evaluate worsening arthrosclerotic plaque. Hyperlipidemia LDL goal <70 12/03/2023 Assessment & Plan (04/01/2024 8:53 AM EST): Lipid abnormalities are stable Plan: Continue same medication/s without change. Discussed medication dosage, use, side effects, and goals of treatment in detail. Counseled patient on lifestyle modifications to help control hyperlipidemia. Patient Treatment Goals: LDL goal is less than 70 Not at goal Followup in 6 months. Patient to continue pravastatin 40 mg daily. Assessment & Plan (02/03/2024 5:21 PM EDT): Last LDL was 132 in October 2023. He is on pravastatin but I think this was recently started. Will need to verify at next appointment and may need to increase pravastatin. Assessment & Plan (12/03/2023 11:48 AM EDT): Review of labs 11/03/2023 triglycerides 151 cholesterol 204 LDL 132.19 and HDL 40. Continue pravastatin 20 mg. Low-fat low-cholesterol diet Increase aerobic activity as tolerated. Smoking cessation strongly advised MATT (obstructive sleep apnea) 12/03/2023 Assessment & Plan (04/01/2024 8:50 AM EST): Patient has a baseline AHI of 20. This is moderate sleep apnea. Download shows good compliance and control. Patient is receiving benefit from PAP therapy. Plan to continue current treatment. Follow-up in 6 months or sooner for any MATT or PAP concerns. Assessment & Plan (02/03/2024 5:21 PM EDT): Titration study reviewed. He is not tolerating airflow on CPAP. Compliance is good. Will change to BiPAP and do 31 to 91-day download. Orders: PAP Therapy Assessment & Plan (12/03/2023 3:54 PM EDT): Patient has a baseline AHI of 20. This is moderate sleep apnea. No recent download patient is to bring in his chip for us to read. Patient states that he uses his PAP machine faithfully. He reports increased fatigue and frequent awakenings. He states he has no trouble falling asleep but wakes up and cannot go back to sleep. We have discussed doing a titration study to consider CPAP to BiPAP. Patient is agreeable to doing this. Family History Medical History Relation Name Comments Heart attack Father Heart disease Father Hypertension Father Heart disease Maternal Grandfather Heart disease Maternal Grandmother No Known Problems Mother Heart disease Paternal Grandfather Heart disease Paternal Grandmother Relation Name Status Comments Father Maternal Grandfather Maternal Grandmother Mother Alive Paternal Grandfather Paternal Grandmother Social History Tobacco Use Types Packs/Day Years Used Date Smoking Tobacco: Every Day Cigarettes Passive Smoke Exposure: Current Smokeless Tobacco: Never Tobacco Cessation:Ready to Q uit: Yes; Counseling Given: No Alcohol Use Standard Drinks/Week Comments Not Currently 0 (1 standard drink = 0.6 oz pur e alcohol) Sex and Gender Information Value Date Recorded Sex Assigned at Not on file Legal Sex Male 5:10 PM EDT Gender Identity Not on file Sexual Orientation Not on file Last Filed Vital Signs Vital Sign Reading Time Taken Comments Blood Pressure 136/82 04/01/2024 8:34 AM EST Pulse 87 04/01/2024 8:34 AM EST Temperature - - Respiratory Rate - - Oxygen Saturation 97% 04/01/2024 8:34 AM EST Inhaled Oxygen Concentration - - Weight 103 kg (228 lb) 04/01/2024 8:34 AM EST Height 175.3 cm (5' 9 ) 04/01/2024 8:34 AM EST Body Mass Index 33.67 04/01/2024 8:34 AM EST Plan of Treatment Health Maintenance Due Date Last Done Comments LIPID PANEL 1972 Pneumococcal Vaccine 50+ (1 of 2 - PCV) 08/14/1991 TDAP/TD VACCINES (1 - Tdap) 08/14/1991 COLOGUARD 2017 COLON CANCER SCREENING 5 YEA R SIGMOIDOSCOPY 2017 COLONOSCOPY 2017 [address]AL CANCER SCREENING 2017 CT COLONOGRAPHY 2017 FECAL OCCULT BLOOD TEST 2017 FIT Testing (1 year) 2017 ZOSTER VACCINE (1 of 2) 2022 ANNUAL PHYSICAL 12/01/2023 COVID-19 Vaccine ( season) 2023 03/07/2021, 05/24/2020, 04/23/2020 INFLUENZA VACCINE 01/18/2025 02/08/2021 HEPATITIS C SCREENING Completed 05/27/2023, 024 Insurance Care Teams Painter Decorator Relationship Specialty Start Date End Date Tristen Mccormick MD [address] [place] [address] PCP - General Family Medicine 11/27/23
--- NOTE | 2024-11-09 07:30 | MR_ITS ---
FINAL REPORT TECHNIQUE: Multiplanar MR, without and with gadolinium enhancement CLINICAL HISTORY: right sciatic pain. low back pain with right hip and leg pain. When pain gets bad patient is unable to urinate or have a bowel movement. symptoms x2 months COMPARISON: None FINDINGS: Sagittal images show normal vertebral height. Alignment is normal. Marrow signal pattern is unremarkable. There are hemangiomas within the T11, L2, and L3 vertebral bodies. T12-L1: Unremarkable L1-2: Unremarkable L2-3: Minimal annular disc bulge without canal stenosis. L3-4: Minimal annular disc bulge without canal stenosis. L4-5: Moderate annular disc bulge and facet arthropathy. Moderate central canal stenosis. Moderate bilateral neural foraminal narrowing. L5-S1: Moderate annular disc bulge. Mild facet arthropathy. Mild central canal stenosis. Mild neural foraminal narrowing. No abnormal enhancement or enhancing mass identified. IMPRESSION: Degenerative changes of the lower lumbar spine most pronounced at L4-5. Reviewed, Interpreted and Dictated by Nirmal West MD Transcribed by Maria E Smith Authenticated and [facility]
[2024-11-09] MEDS: GADOTERIDOL INJ 20ML SYRINGE 19 ML IV (08:01)
[2024-11-09] MEDS: SODIUM CHLORIDE 0.9% 10ML SYR (RAD ONLY) 10 ML IV (08:01)
== END 2024-11-09 23:59 | disposition home or self-care (01) ==
LOC: RAD 07:20
PROVIDERS: PCP Family Medicine; Visit Provider Nurse Practitioner Family
DX: M54.31 Sciatica, right side (principal); M48.061 Spinal stenosis, lumbar region without neurogenic claudication; M47.816 Spondylosis without myelopathy or radiculopathy, lumbar region; M51.369 Other intervertebral disc degeneration, lumbar region without mention of lumbar back pain or lower extremity pain; M51.379 Other intervertebral disc degeneration, lumbosacral region without mention of lumbar back pain or lower extremity pain; D18.09 Hemangioma of other sites
CPT/HCPCS: 72158; A9576